=== PATIENT | female | born 1940 | race Caucasian/White ===

== ENCOUNTER → 2019-10-01 10:47 | Outpatient (BNVA) | payer MEDICARE, OTHER, SELFPAY | PROVIDERS: Family Provider Family Medicine; PCP Family Medicine; Visit Provider Family Medicine | DX: I10 Essential (primary) hypertension (principal); E03.9 Hypothyroidism, unspecified | CPT/HCPCS: 80053; 80061; 84443; 85025 ==

== ENCOUNTER → 2019-12-13 09:13 | Outpatient (BNVA) | payer MEDICARE, OTHER, SELFPAY | PROVIDERS: Family Provider Family Medicine; PCP Family Medicine; Visit Provider Family Medicine | DX: E03.9 Hypothyroidism, unspecified (principal); I10 Essential (primary) hypertension; K21.9 Gastro-esophageal reflux disease without esophagitis; G47.00 Insomnia, unspecified; F03.90 Unspecified dementia, unspecified severity, without behavioral disturbance, psychotic disturbance, mood disturbance, and anxiety | CPT/HCPCS: 80053; 84443; 85025 ==

== ENCOUNTER → 2020-03-03 10:21 | Outpatient (BNVA) | payer MEDICARE, OTHER, SELFPAY | PROVIDERS: Family Provider Family Medicine; PCP Family Medicine; Visit Provider Family Medicine | DX: R35.0 Frequency of micturition (principal); E03.9 Hypothyroidism, unspecified; I10 Essential (primary) hypertension; N39.0 Urinary tract infection, site not specified | CPT/HCPCS: 80053; 80061; 81003; 84443; 85025; 87077; 87086; 87186 ==

== ENCOUNTER 2020-05-07 11:54 | Outpatient (CLI) | payer MEDICARE, OTHER, SELFPAY ==
[2020-05-07 12:16] LABS: Basophils % 0.4 %; Eosinophils % 0.2 %; Hematocrit 40.4 % (37.0-47.0); Hemoglobin 12.3 g/dL (11.5-15.3); Lymphocytes # 1.1 10^3/uL (0.8-4.8); Lymphocytes % 22.7 %; Mean Corpuscular HGB Conc 30.4 g/dL (30.0-36.0); Mean Corpuscular Hemoglobin 29.3 pg (28.0-34.0); Mean Corpuscular Volume 96.2 fL (81-99); Mean Platelet Volume 8.2 fL (7.4-10.4); Monocytes # 0.5 10^3/uL (0.2-0.9); Monocytes % 11.4 %; Neutrophils # 2.99 10^3/uL (1.8-7.7); Neutrophils % 64.2 %; Nucleated Red Blood Cells % 0 %; Platelet Count 431 10^3/cmm (130-400); White Blood Count 4.7 10^3/uL (4.0-10.0)
[2020-05-07 12:46] LABS: Alanine Aminotransferase 29 U/L (0-33); Albumin Level 4.5 g/dL (3.5-5.2); Alkaline Phosphatase 127 IU/L (35-105); Blood Urea Nitrogen 10 mg/dL (8-23); Calcium 9.6 mg/dL (8.5-10.5); Carbon Dioxide 31 mmol/L (22-29); Chloride 99 mmol/L (98-107); Globulin 2.5 g/dL (1.3-4.6); Glucose 111 mg/dL (65-115); Osmolality Calculated 283 mOsm/kg (285-295); Sodium 138 mmol/L (136-145); Total Bilirubin 0.3 mg/dL (0.15-1.2)
[2020-05-07 12:52] LABS: Anion Gap 12.7 (5-19); Aspartate Amino Transferase 39 U/L (0-32); Potassium 4.7 mmol/L (3.5-5.1)
== END 2020-05-07 11:55 | disposition home or self-care (01) ==
LOC: LAB 11:57
PROVIDERS: Family Provider Family Medicine; PCP Family Medicine; Visit Provider Internal Medicine Pulmonary Disease
DX: M06.9 Rheumatoid arthritis, unspecified (principal); R06.02 Shortness of breath
CPT/HCPCS: 80053; 85025

== ENCOUNTER → 2020-05-12 14:18 | Outpatient (BNVA) | payer MEDICARE, OTHER, SELFPAY | PROVIDERS: Family Provider Family Medicine; PCP Family Medicine; Visit Provider Internal Medicine | DX: R06.02 Shortness of breath (principal); Z20.828 Contact with and (suspected) exposure to other viral communicable diseases | CPT/HCPCS: 87635 ==

== ENCOUNTER 2020-05-15 08:49 | Outpatient (CLI) | payer MEDICARE, OTHER, SELFPAY ==
--- NOTE | 2020-05-15 09:30 | CT_ITS ---
WS: [id number] CT CHEST WITHOUT INTRAVENOUS CONTRAST, high-resolution imaging. HISTORY: interstitial lung disease TECHNIQUE: Contiguous 5 mm axial imaging performed on the thorax. Coronal and sagittal high resolutio n CT imaging of the chest in supine and prone positioning. Supine inspiration and expiration imaging. All CT scans at [facility] use at least one of these dose optimization techniques: automa alexandra exposure control; mA and/or kV adjustment per patient size (includes targeted exams where dose is matched to clinical indication); or iterative reconstruction. CONTRAST: None DLP: 259.99 mGy.cm COMPARISON: 03/13/2015. This examination is limited due to patient's age and breathing motion artifact. Although the patient was able to obtain prone positioning it was very difficult. Lungs and central airway: Mild pulmonary hyperinflation. There are bilateral upper lower lobe periphe ral and subpleural reticulations. No upper lower lobe predominance of any significance. No pneumonia. No suspicious pulmonary nodule. Benign calcification RIGHT middle lobe. Multilobar areas of mild bro nchiectasis. There is mild bronchiectasis in all lobes are greater at the lung bases and RIGHT middle lobe. With expiration there is loss of the normal pulmonary expansion. No air trapping noted on pron e positioning. No honeycombing. Pleura: Normal. No pleural effusion. Heart and pericardium: Mildly enlarged heart. No pericardial effusion. Upper abdomen: Prior cholecystectomy. Osseous structures: As visualized no destructive lesions. Osteopenia and scoliosis. CT/CT chest wo con [id number] IMPRESSION: 1. Changes of mild usual interstitial pneumonia. Reticulations with mild multi lobar traction bronchiectasis. These findings may be associated with rheumatoi d arthritis. 2. No honeycombing. 3. Mild emphysema.
--- NOTE | 2020-05-15 13:46 | PFTS_ITS ---
Date of Study:05/15/20 Date of Dictation: MECHANICS: Forced vital capacity (FVC) is normal. Forced expiratory volume in one second (FEV1) is normal. FEV1/FVC is normal. FLOW VOLUME LOOP: Normal. LUNG VOLUMES: Total lung capacity (TLC) is normal. Residual volume (RV) is normal. DIFFUSING CAPACITY FOR CARBON MONOXIDE: Mild reduced. INTERPRETATION: The pulmonary function tests are normal. Lung volumes are normal. Gas exchange (DLCO) is mildly reduced. MTDD
== END 2020-05-15 08:50 | disposition home or self-care (01) ==
LOC: CT 08:52
PROVIDERS: PCP Family Medicine; Visit Provider Internal Medicine Pulmonary Disease
DX: M06.9 Rheumatoid arthritis, unspecified (principal); R06.02 Shortness of breath; J43.9 Emphysema, unspecified
CPT/HCPCS: 71250; 94010; 94726; 94729

== ENCOUNTER 2020-06-10 09:27 | Outpatient (CLI) | payer MEDICARE, OTHER, SELFPAY ==
--- NOTE | 2020-06-10 09:30 | USCV_ITS ---
Pearl Roblero Age: 80 Gender: F : 1940 Exam Date: 06/10/2020 09:45 Ordering Phys: Garland Mittal MD Technologist: Sue Esposito Exam Location: [facility] [place] Indication: SOB BP: 117 / 70 HR: 77 Rhythm: Sinus Technical Quality: Adequate MEASUREMENTS (Male / Female) Normal Values 2D ECHO LV Diastolic Diameter PLAX 4.0 cm 4.2 - 5.9 / 3.9 - 5.3 cm LV Systolic Diameter PLAX 2.1 cm LV Chamber Size 3.4 cm IVS Diastolic Thickness 1.2 cm 0.6 - 1.0 / 0.6 - 0.9 cm IVS Systolic Thickness 1.7 cm LVPW Diastolic Thickness 1.1 cm 0.6 - 1.0 / 0.6 - 0.9 cm LVPW Systolic Thickness 1.5 cm RV Chamber Size 2.9 cm LVOT Diameter 2.0 cm LV Ejection Fraction 2D Teich 78.2 % LV Ejection Fraction MOD 2C 55.5 % LV Ejection Fraction 2C AL 56.8 % LA Diameter 4.0 cm LA Width 2.0 cm LA Height 4.1 cm RA Width 2.7 cm RA Height 4.0 cm Aorta at Sinotubular Diameter 3.2 cm M-MODE LV Diastolic Diameter MM 4.3 cm 4.2 - 5.9 / 3.9 - 5.3 cm LV Systolic Diameter MM 2.8 cm LV Ejection Fraction MM Teich 64.5 % IVS Diastolic Thickness MM 0.8 cm 0.6 - 1.0 / 0.6 - 0.9 cm IVS Systolic Thickness MM 1.2 cm LVPW Diastolic Thickness MM 1.0 cm 0.6 - 1.0 / 0.6 - 0.9 cm LVPW Systolic Thickness MM 1.6 cm RV Diastolic Diameter MM 1.4 cm Aortic Annulus Diameter 2.9 cm LA Ao Ratio MM 1.4 MV E Point Septal Separation 0.6 cm DOPPLER AV Peak Velocity 196.0 cm/s LVOT Peak Velocity 94.0 cm/s AV Area Cont Eq vti 1.7 cm squared AV Area Cont Eq pk 1.6 cm squared MV Area PHT 3.5 cm squared Mitral E to A Ratio 0.7 MV E' Velocity 6.0 cm/s Mitral E to MV E' Ratio 8.8 Mitral E to LV E' Lateral Ratio 9.7 Mitral E to LV E' Septal Ratio 8.2 TR Peak Velocity 238.9 cm/s TR Peak Gradient 22.8 mmHg TR Mean Velocity 186.0 cm/s TR Mean Gradient 15.0 mmHg TR Velocity Time Integral 69.8 cm TV Peak E Velocity 50.0 cm/s Right Atrial Pressure 3.0 mmHg Pulmonary Artery Systolic Pressu 25.8 mmHg PV Peak Velocity 65.0 cm/s RV Acceleration Time 0.1 s RV Ejection Time 0.3 s RV AcT/ET 0.4 FINDINGS Left Ventricle Normal left ventricular size and systolic function, EF 57 %. Mild left ventricular hypertrophy. No regional wall motion abnormalities. Grade I/IV diastolic dysfunction (abnormal relaxation filling pattern), normal to mildly elevated filling pressures. Right Ventricle The right ventricle is normal in size and function. Right Atrium The right atrium is normal in size. Left Atrium Normal left atrial size. Mitral Valve Thickened mitral valve. Aortic Valve Thickened aortic valve. Trace to mild aortic valve regurgitation. Tricuspid Valve Mild tricuspid valve regurgitation. Similar pulmonary artery peak systolic pressure was 26 mmHg Pulmonic Valve Pulmonic valve not well visualized. Pericardium No pericardial or pleural effusion. Aorta Normal ascending aorta dimension. CONCLUSIONS Normal left ventricular size and systolic function, EF 57 %. Mild left ventricular hypertrophy. No regional wall motion abnormalities. Grade I/IV diastolic dysfunction (abnormal relaxation filling pattern), normal to mildly elevated filling pressures. Features of aortic valve sclerosis with a peak velocity of 1.96 m/s Trace to mild aortic valve regurgitation. Thickened mitral valve. Mild tricuspid valve regurgitation. Similar pulmonary artery peak systolic pressure was 26 mmHg. There is no pericardial effusion. There are no intracardiac masses. Compared to the study from 03/18/2017, there may not be a significant Dr Susan Grullon MD FACC (Electronically Signed) Final Date: 10 June 2020 18:20 S
== END 2020-06-10 09:28 | disposition home or self-care (01) ==
LOC: RAD 09:30
PROVIDERS: PCP Family Medicine; Visit Provider Internal Medicine Pulmonary Disease
DX: I27.20 Pulmonary hypertension, unspecified (principal); R06.02 Shortness of breath; I08.3 Combined rheumatic disorders of mitral, aortic and tricuspid valves
CPT/HCPCS: 93306

== ENCOUNTER → 2020-06-16 15:55 | Outpatient (BNVA) | payer MEDICARE, OTHER, SELFPAY | PROVIDERS: PCP Family Medicine; Referring Provider Internal Medicine Pulmonary Disease; Visit Provider Internal Medicine | DX: E03.9 Hypothyroidism, unspecified (principal); E05.90 Thyrotoxicosis, unspecified without thyrotoxic crisis or storm; I10 Essential (primary) hypertension; I48.91 Unspecified atrial fibrillation; M81.0 Age-related osteoporosis without current pathological fracture; R00.0 Tachycardia, unspecified; R79.89 Other specified abnormal findings of blood chemistry; T38.1X5A Adverse effect of thyroid hormones and substitutes, initial encounter | CPT/HCPCS: 36415; 84439; 84443; 99204 ==

== ENCOUNTER 2020-06-16 16:48 | Outpatient (CLI) | payer MEDICARE, OTHER, SELFPAY ==
[2020-06-16 17:52] LABS: Free T4 Free Thyroxine 1.77 ng/dL (0.82-1.77); Thyroid Stimulating Hormone 0.05 uIU/mL (0.27-4.20)
== END 2020-06-16 16:49 | disposition home or self-care (01) ==
LOC: LAB 16:52
PROVIDERS: PCP Family Medicine; Visit Provider Internal Medicine
DX: E03.9 Hypothyroidism, unspecified (principal); R79.89 Other specified abnormal findings of blood chemistry
CPT/HCPCS: 36415; 84439; 84443

== ENCOUNTER → 2020-08-15 10:10 | Outpatient (BNVA) | payer MEDICARE, OTHER, SELFPAY | PROVIDERS: PCP Family Medicine; Visit Provider Internal Medicine | DX: E05.90 Thyrotoxicosis, unspecified without thyrotoxic crisis or storm (principal); T38.1X5A Adverse effect of thyroid hormones and substitutes, initial encounter; I10 Essential (primary) hypertension; M81.0 Age-related osteoporosis without current pathological fracture; R00.0 Tachycardia, unspecified | CPT/HCPCS: 99214 ==

== ENCOUNTER → 2020-08-18 09:36 | Outpatient (BNVA) | payer MEDICARE, OTHER, SELFPAY | PROVIDERS: PCP Family Medicine; Visit Provider Internal Medicine | DX: E03.9 Hypothyroidism, unspecified (principal); E05.90 Thyrotoxicosis, unspecified without thyrotoxic crisis or storm; T38.1X5A Adverse effect of thyroid hormones and substitutes, initial encounter | CPT/HCPCS: 84439; 84443 ==

== ENCOUNTER → 2020-10-14 09:31 | Outpatient (BNVA) | payer MEDICARE, OTHER, SELFPAY | PROVIDERS: PCP Nurse Practitioner Family; Visit Provider Internal Medicine | DX: E03.9 Hypothyroidism, unspecified (principal); E05.90 Thyrotoxicosis, unspecified without thyrotoxic crisis or storm; T38.1X5A Adverse effect of thyroid hormones and substitutes, initial encounter; G31.84 Mild cognitive impairment of uncertain or unknown etiology; M05.10 Rheumatoid lung disease with rheumatoid arthritis of unspecified site; M81.0 Age-related osteoporosis without current pathological fracture; R00.0 Tachycardia, unspecified | CPT/HCPCS: 36415; 84439; 84443; 99215 ==

== ENCOUNTER 2020-10-14 10:46 | Outpatient (CLI) | payer MEDICARE, OTHER, SELFPAY ==
[2020-10-14 11:39] LABS: Thyroid Stimulating Hormone 0.07 uIU/mL (0.27-4.20)
[2020-10-14 13:26] LABS: Free T4 Free Thyroxine 1.59 ng/dL (0.82-1.77)
== END 2020-10-14 10:47 | disposition home or self-care (01) ==
PROVIDERS: PCP Nurse Practitioner Family; Visit Provider Internal Medicine
DX: E03.9 Hypothyroidism, unspecified (principal)
CPT/HCPCS: 36415; 84439; 84443

== ENCOUNTER → 2020-11-27 10:31 | Outpatient (BNVA) | payer MEDICARE, OTHER, SELFPAY | PROVIDERS: PCP Nurse Practitioner Family; Visit Provider Internal Medicine Pulmonary Disease | DX: R06.02 Shortness of breath (principal) | CPT/HCPCS: 87635 ==

== ENCOUNTER 2020-12-04 12:58 | Outpatient (CLI) | payer MEDICARE, OTHER, SELFPAY ==
--- NOTE | 2020-12-04 13:37 | PFTS_ITS ---
Date of Study:12/04/20 Date of Dictation: MECHANICS: Forced vital capacity (FVC) is normal. Forced expiratory volume in one second (FEV1) is normal. FEV1/FVC is normal. FLOW VOLUME LOOP: Normal. LUNG VOLUMES: Total lung capacity (TLC) is normal. Residual volume (RV) is normal. DIFFUSING CAPACITY FOR CARBON MONOXIDE: Normal. INTERPRETATION: The pulmonary function tests are normal. MTDD
== END 2020-12-04 12:59 | disposition home or self-care (01) ==
LOC: RT 13:00
PROVIDERS: PCP Nurse Practitioner Family; Visit Provider Internal Medicine Pulmonary Disease
DX: R06.02 Shortness of breath (principal)
CPT/HCPCS: 94010; 94618; 94726; 94729

== ENCOUNTER 2021-07-17 10:25 | Inpatient (IN) | payer MEDICARE, OTHER, SELFPAY ==
[2021-07-17] VITALS (7 sets, daily range): BP systolic 90–130; BP diastolic 60–77; PULSE 86–110; RESP 14–20; TEMP 36.5–36.9; O2SAT 95–97; BMI 20.3; BMI 22.6
--- NOTE | 2021-07-17 10:35 | ECG_ITS ---
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 Measurements Intervals [place] Rate: 95 P: 75 [place]: 156 QRS: -41 QRSD: 145 T: 85 QT: 370 QTc: 467 Interpretive Statements SINUS RHYTHM LEFT AXIS DEVIATION [QRS AXIS < -30] RIGHT BUNDLE BRANCH BLOCK [120+ ms QRS DURATION, UPRIGHT V1, 40+ ms S IN I/aVL/V4/V5/V6] VOLTAGE CRITERIA FOR LVH [MEETS CRITERIA IN ONE OF: R(aVL), S(V1), R(V5), R(V5/V6)+S(V1)] MODERATE T-WAVE ABNORMALITY, CONSIDER LATERAL ISCHEMIA [-0.1+ mV T-WAVE IN I/aVL/V5/V6] Compared to ECG 07/26/2017 13:29:50 Left-axis deviation now present T-wave abnormality now present Possible ischemia now present First degree AV block no longer present Electronically Signed On 07-17-2021 22:39:34 CDT by Chris Chicas M.D. [email or web address]
--- NOTE | 2021-07-17 10:35 | XR_ITS ---
WS: [id number] Portable AP upright chest, 07/17/2021 Clinical Data: dyspnea; +covid Comparison: PA and lateral chest, 09/07/2018. Findings: No nodules, masses or effusions are seen. The heart is normal. The pulmonary vascularity is not increased. No pneumonia or pneumothorax is seen. Minimal interstitial changes seen throughout th e lungs. The aortic arch and descending thoracic aorta show tortuosity. There is a levoscoliosis of t he thoracic spine. XR/XR chest 1V portable [id number] Impression: 1. Minimal interstitial change throughout both lungs which may represent chroni c interstitial pneumonia. 2. Atherosclerosis.
--- NOTE | 2021-07-17 11:48 | W.ED.COVID ---
HPI - COVID General: Chief Complaint: COVID symptoms Stated Complaint: COVID, WEAKNESS Time Seen by Provider: 07/17/21 10:26 Source: patient and EMS Mode of arrival: EMS Limitations: no limitations Triage information: Has fever, cough or shortness of breath. Exposure to COVID + person last 14 days History of Present Illness: HPI Narrative: Patient with increased shortness of breath generalized weakness and increased falls over the past 2 days. Patient tested positive for Covid yesterday. was diagnosed with Covid approximately 8 days ago. Patient states she has been feeling ill for approximately 3 days. EMS states that they responded to the house yesterday due to a couple falls due to generalized weakness. Patient normally gets around with a walker. Patient reportedly was very weak and fell couple times due to generalized weakness. Patient refused transport yesterday. Patient reportedly had oxygen saturation 90% on room air yesterday. EMS was called again today due to patient's increased generalized weakness and increased shortness of breath. EMS states their initial oxygen saturation on room air was 85%. Patient was placed on 2 L by nasal cannula and oxygen saturation increased to 96%. Patient states she feels better on the oxygen. She denies any fever. She claims she has had increased cough over the past couple days. Reportedly she has been ambulatory with her walker this morning. COVID 19 common symptoms: positive non-productive cough, dyspnea and fatigue; negative fever(s), chills, headache(s), throat pain, nausea or vomiting COVID 19 other sytmptoms: negative chest pain COVID Results: SARS-CoV-2 RNA (RT-PCR) Not detected (NOT DETECTED) 05/12/20 14:52 05/12/20 Nasal/Oral Coronavirus 2019 PCR Not detected 11/27/20 10:31 11/27/20 Review of Systems Const: Reports: fatigue and malaise; Denies: fever(s) or chills Eyes: Denies: change in vision ENMT: Denies: throat pain Card: Denies: chest pain or palpitations Resp: Reports: dyspnea and non-productive cough; Denies: wheezing GI: Denies: abdominal pain, nausea or vomiting : Denies: flank pain Musc: Denies: neck pain or back pain Skin/Breast: Denies: rash or pruritus Neuro: Denies: headache(s) or numbness in extremities Psych: Denies: anxiety Aiden/Lymph: Denies: enlarged lymph nodes PFSH ED PFSH: Medical History Anxiety and depression Atrial fibrillation and flutter Cardiomyopathy History of OCD (obsessive compulsive disorder) Hypertension Hypothyroidism TARUN on CPAP Osteoarthritis Osteoporosis Rheumatoid arthritis Rheumatoid lung disease with rheumatoid arthritis Surgical History History of arthroplasty of right shoulder History of bladder repair surgery History of cholecystectomy History of foot surgery History of sinus surgery History of spinal fusion Family History Mother Parkinsons disease Social History Smoking and tobacco status: former smoker Quit status (tobacco): has quit using tobacco Year quit tobacco: 1960 Second hand smoke exposure: No Smoking risk assessment/counseling performed?: Yes Alcohol intake: never Adopted: No Lives independently: Yes Household members: spouse Housing: House Marital status: Number of children: 2 service: No Current occupational status: retired Current occupational exposures/hazards: No Pets and animals: Yes Pets & animals: dog(s) History of recent travel: No Current gender identity: Female Laura/[facility]: [employer] Special laura needs: No Physical Exam Const: COMMON NORMALS: no acute distress, patient oriented x3, no limitations and well nourished EXAM LIMITATIONS: altered mental status GENERAL APPEARANCE: cooperative OTHER: Moderate malaise. Oxygen saturation 96% on 2 L by nasal cannula. HENMT: COMMON NORMALS: normocephalic and atraumatic HEAD & SCALP: normocephalic and atraumatic FACE & SINUS: normal facial exam Eye: COMMON NORMALS: EOMs intact bilaterally Neck/C-Spine: COMMON NORMALS: full ROM, no lymphadenopathy, supple and no meningeal signs GENERAL: Yes normal visual inspection Lymph: LYMPHATIC: no lymphadenopathy noted Chest: COMMONS NORMALS: normal inspection of the chest and normal palpation of entire chest wall CHEST: No Ecchymosis present and No rash Resp: COMMON NORMALS: No retractions EFFORT & INSPECTION: Yes tachypneic (Mild tachypnea) and No respiratory distress AUSCULTATION: rales (Moderate Rales bilaterally) bilateral Cardio: COMMON NORMALS: regular rate, regular rhythm and Peripheral pulses 2+ throughout JUGULAR VENOUS DISTENTION: no JVD RATE: regular rate RHYTHM: regular rhythm PERIPHERAL PULSES: Peripheral pulses 2+ throughout GI: COMMON NORMALS: Normal to inspection, nondistended, normoactive bowel sounds present and non-tender : COMMON NORMALS: Yes no CVA tenderness BLADDER/KIDNEY EXAM: Yes no CVA tenderness Back/Pelvis: COMMON NORMALS: no CVA tenderness Extremity: COMMON NORMALS: capillary refill normal NARRATIVE EXTREMITY EXAM: Right third finger with mild swelling and mild ecchymosis versus slight redness. No increased warmth. No fluctuance. Limited range of motion due to arthritic changes. Neuro: COMMON NORMALS: patient oriented x3, CN's II-XII intact bilaterally, no focal motor deficits and no sensory deficits noted MENINGEAL SIGNS: Yes no meningeal signs Psych: COMMON NORMALS: mental status grossly normal and Normal thought process present THOUGHT PROCESS: Normal thought process present Skin: COMMON NORMALS: no rashes or lesions noted and no wounds GENERAL SKIN EXAM: no rashes or lesions noted Course Vital Signs: Vital signs: Vital Signs Temperature 98.5 F 07/17/21 10:29 Pulse Rate 100 07/17/21 14:57 Respiratory Rate 14 07/17/21 11:32 Blood Pressure 109/66 07/17/21 14:57 Pulse Oximetry 95 07/17/21 14:57 MDM - COVID MDM Narrative: Medical decision making narrative: See nursing assessment. Patient reports that her right third finger has been swollen for 4 to 6 weeks. Her primary care physician is following this. Patient denies any increase in pain to her right third finger. She states it is mildly painful but has not changed in the past couple weeks. No known injury to the right third finger. Fingers not warm to the touch. I do not believe it is infected. Patient reportedly had a positive Covid test in the past 2 days at [facility]. We will call the clinic to confirm this. [facility] was contacted and they did confirm that she did have a positive Covid test this week. Differential Diagnosis: Differential diagnosis: Likely COVID 19, bacterial infection and other (Pulmonary embolus) Lab Data: Attestation: I reviewed the patient's lab results. Labs: Lab Results 07/17/21 07/17/21 07/17/21 11:42 11:42 11:42 WBC 2.4 10^3/uL L 10^ 3/uL (4.0-10.0) RBC 4.13 10^6/uL 10^6 /uL (4.1-5.3) Hgb 12.7 g/dL g/dL (11.5-15.3) Hct 40.5 % % (37.0-47.0) MCV 98.1 fl fl (81-99) MCH 30.8 pg pg (28.0-34.0) MCHC 31.4 g/dL g/dL (30.0-36.0) RDW 16.3 % H % (12.1-15.1) Plt Count 219 10^3/cmm 10^3 /cmm (130-400) MPV 8.8 fL fL (7.4-10.4) Neut % (Auto) 53.3 % % Lymph % (Auto) 32.2 % % [place] % (Auto) 5.0 % % Eos % (Auto) 0.4 % % Baso % (Auto) 0.8 % % Neut # (Auto) 1.29 10^3/uL L 10 ^3/uL (1.8-7.7) Lymph # (Auto) 0.8 10^3/uL 10^3/ uL (0.8-4.8) [place] # (Auto) 0.1 10^3/uL L 10^ 3/uL (0.2-0.9) Eos # (Auto) 0.0 10^3/uL 10^3/ uL (0.0-0.8) Baso # (Auto) 0.0 10^3/uL 10^3/ uL (0.0-0.1) Nucleated RBC % (a uto) 0 % % Nucleated RBCs # 0.0 /100WBC /100W BC APTT Cancelled D-Dimer Cancelled Sodium Cancelled Potassium Cancelled Chloride Cancelled Carbon Dioxide Cancelled Anion Gap Cancelled BUN Cancelled Creatinine Cancelled GFR Calculation Cancelled Glucose Cancelled Calculated Osmolal ity Cancelled Lactate Calcium Cancelled Total Bilirubin Cancelled AST Cancelled ALT Cancelled Alkaline Phosphata se Cancelled Troponin T Gen 5 n g/L NT-Pro-B Natriuret Pep Cancelled Total Protein Cancelled Albumin Cancelled Globulin Cancelled Amorphous Sediment 07/17/21 07/17/21 07/17/21 11:42 11:42 12:49 WBC RBC Hgb Hct MCV MCH MCHC RDW Plt Count MPV Neut % (Auto) Lymph % (Auto) [place] % (Auto) Eos % (Auto) Baso % (Auto) Neut # (Auto) Lymph # (Auto) [place] # (Auto) Eos # (Auto) Baso # (Auto) Nucleated RBC % (a uto) Nucleated RBCs # APTT D-Dimer Sodium 136 mmol/L mmol/L (136-145) Potassium 4.1 mmol/L mmol/L (3.5-5.1) Chloride 98 mmol/L mmol/L (98-107) Carbon Dioxide 27 mmol/L mmol/L (22-29) Anion Gap 15.1 (5-19) BUN 22 mg/dL mg/dL (8-23) Creatinine 1.0 mg/dL H mg/dL (0.5-0.9) GFR Calculation Not Reportable Glucose 163 mg/dL H mg/dL (65-115) Calculated Osmolal ity 289 mOsm/kg mOsm/ kg (285-295) Lactate 1.6 mmol/L mmol/L (0.5-2.2) Calcium 8.7 mg/dL mg/dL (8.5-10.5) Total Bilirubin 0.3 mg/dL mg/dL (0.15-1.2) AST 36 U/L H U/L (0-32) ALT 32 U/L U/L (0-33) Alkaline Phosphata se 100 IU/L IU/L (35-105) Troponin T Gen 5 n g/L 83 ng/L H ng/L (0-10) NT-Pro-B Natriuret Pep 404 pg/mL pg/mL (0-450) Total Protein 5.4 g/dL L g/dL (6.6-8.7) Albumin 3.1 g/dL L g/dL (3.5-5.2) Globulin 2.3 g/dL g/dL (1.3-4.6) Amorphous Sediment 07/17/21 07/17/21 07/17/21 12:49 13:47 14:36 WBC RBC Hgb Hct MCV MCH MCHC RDW Plt Count MPV Neut % (Auto) Lymph % (Auto) [place] % (Auto) Eos % (Auto) Baso % (Auto) Neut # (Auto) Lymph # (Auto) [place] # (Auto) Eos # (Auto) Baso # (Auto) Nucleated RBC % (a uto) Nucleated RBCs # APTT 31.2 SECONDS SECO NDS (23.9-36.7) D-Dimer 2.61 ug/mIFEU H u g/mIFEU (0-0.59) Sodium Potassium Chloride Carbon Dioxide Anion Gap BUN Creatinine GFR Calculation Glucose Calculated Osmolal ity Lactate Calcium Total Bilirubin AST ALT Alkaline Phosphata se Troponin T Gen 5 n g/L 72 ng/L H ng/L (0-10) NT-Pro-B Natriuret Pep Total Protein Albumin Globulin Amorphous Sediment Not Reportable Imaging Data: CXR: Attestation: I personally reviewed and interpreted this imaging study as follows: My impression: Early left lower lobe infiltrate. Minimal pneumonitis bilaterally. Radiologist's impression: WS: [id number] Portable AP upright chest, 07/17/2021 Clinical Data: dyspnea; +covid Comparison: PA and lateral chest, 09/07/2018. Findings: No nodules, masses or effusions are seen. The heart is normal. The pulmonary vascularity is not increased. No pneumonia or pneumothorax is seen. Minimal interstitial changes seen throughout the lungs. The aortic arch and descending thoracic aorta show tortuosity. There is a levoscoliosis of the thoracic spine. XR/XR chest 1V portable [id number] Impression: 1. Minimal interstitial change throughout both lungs which may represent chronic interstitial pneumonia. 2. Atherosclerosis. Dictated By:Silvia Cain MDSigned By:Silvia Cain MDSigned Date/Time:07/17/21 1157 Xray Ortho: Radiologist's impression: WS: [email or web address] 2 views of the right third finger, 07/17/2021 Clinical Data: r3 finger pain/swelling for one month Comparison: None. Findings: There is marked deformity of the right third finger PIP joint with ventral dislocation of the middle phalanx and a pseudarthrosis with a large dorsal spur. Deforming dislocations of the adjacent second and fourth fingers are also present. There is bony overgrowth of the distal portion of the third finger middle phalanx as it articulates with the distal phalanx. No fractures are seen. There is soft tissue swelling about the PIP joint. XR/XR finger RT min 2V [id number] Impression: Marked deformity of the right third finger with no recent fractures. Dictated By:Silvia Cain MDSigned By:Silvia Cain MDSigned Date/Time:07/17/21 1208 EKG Data: EKG 1: Attestation: I personally reviewed and interpreted this EKG as follows: EKG interpretation date: 07/17/21 EKG interpretation time: 13:05 Prior EKG tracings: not available for review Ischemic changes: non-specific ST-T wave changes Interpretation: Normal sinus rhythm with heart rate 95. Left axis. Right bundle branch block, nonspecific ST-T changes. Neck from tremor. Normal NC interval. Normal QT interval. COVID Results: SARS-CoV-2 RNA (RT-PCR) Not detected (NOT DETECTED) 05/12/20 14:52 05/12/20 Nasal/Oral Coronavirus 2019 PCR Not detected 11/27/20 10:31 11/27/20 Discharge Plan Discharge Clinical Impression: Pneumonia due to COVID-19 virus, Shortness of breath at rest, Osteoarthritis of right middle finger Condition: Stable Prescriptions: No Action duloxetine 60 mg capsule, delayed rel sprinkle 60 mg PO DAILY Qty: 90 RF: 1 omeprazole 10 mg capsule,delayed release(DR/EC) 10 mg PO BID Qty: 120 RF: 3 duloxetine 30 mg capsule, delayed rel sprinkle 30 mg PO DAILY PRNRF: 0 gabapentin 400 mg capsule 200 mg PO QID RF: 0 prednisone 10 mg tablet 10 mg PO DAILY RF: 0 furosemide 40 mg tablet See Rx Instructions .ROUTE .COMPLEX Qty: 90 RF: 0 temazepam 30 mg capsule 30 mg PO .at hs Qty: 30 RF: 2 potassium chloride 10 mEq tablet extended release See Rx Instructions .ROUTE .COMPLEX Qty: 180 RF: 6 isosorbide mononitrate 30 mg tablet extended release 24 hr 30 mg PO DAILY Qty: 90 RF: 3 Referrals: Anahy Ham APN [Primary Care Provider] - Coding Level of Care Code ED Canvas Shrinker for Chg Fwd Exam Comprehensive
--- NOTE | 2021-07-17 11:50 | XR_ITS ---
WS: [email or web address] 2 views of the right third finger, 07/17/2021 Clinical Data: r3 finger pain/swelling for one month Comparison: None. Findings: There is marked deformity of the right third finger PIP joint with ventral dislocation of the middle phalanx and a pseudarthrosis with a large dorsal spur. Deforming dislocations of the adjacent second and fourth fingers are also present. There is bony overgrowth of the distal portion of the third fin himanshu middle phalanx as it articulates with the distal phalanx. No fractures are seen. There is soft tissue swelling about the PIP joint. XR/XR finger RT min 2V [id number] Impression: Marked deformity of the right third finger with no recent fractures.
[2021-07-17 11:53] LABS: Basophils % 0.8 %; Eosinophils % 0.4 %; Hematocrit 40.5 % (37.0-47.0); Hemoglobin 12.7 g/dL (11.5-15.3); Lymphocytes # 0.8 10^3/uL (0.8-4.8); Lymphocytes % 32.2 %; Mean Corpuscular HGB Conc 31.4 g/dL (30.0-36.0); Mean Corpuscular Hemoglobin 30.8 pg (28.0-34.0); Mean Corpuscular Volume 98.1 fl (81-99); Mean Platelet Volume 8.8 fL (7.4-10.4); Monocytes # 0.1 10^3/uL (0.2-0.9); Neutrophils # 1.29 10^3/uL (1.8-7.7); Neutrophils % 53.3 %; Nucleated Red Blood Cells % 0 %; Platelet Count 219 10^3/cmm (130-400); Red Blood Count 4.13 10^6/uL (4.1-5.3); Red Cell Distribution Width 16.3 % (12.1-15.1); White Blood Count 2.4 10^3/uL (4.0-10.0)
[2021-07-17 12:17] LABS: Troponin T (5th) Once 83 ng/L (0-10)
[2021-07-17 12:18] LABS: Lactate (Lactic Acid level) 1.6 mmol/L (0.5-2.2)
[2021-07-17 12:31] LABS: Slide Review Slide Review Perform
[2021-07-17] MEDS: aspirin 81 mg Chew Tablet 324 MG PO (13:21)
[2021-07-17] MEDS: azithromycin 500 MG in sodium chloride 0.9% 250 ML 250 MG IV (13:22)
[2021-07-17] MEDS: cefTRIAXone 1,000 MG in sodium chloride 0.9% (plus) 50 ML 100 MG IV (13:23)
[2021-07-17 13:46] LABS: Partial Thromboplastin Time 31.2 SECONDS (23.9-36.7)
[2021-07-17 13:47] LABS: Alanine Aminotransferase 32 U/L (0-33); Albumin Level 3.1 g/dL (3.5-5.2); Alkaline Phosphatase 100 IU/L (35-105); Anion Gap 15.1 (5-19); Aspartate Amino Transferase 36 U/L (0-32); Blood Urea Nitrogen 22 mg/dL (8-23); Calcium 8.7 mg/dL (8.5-10.5); Carbon Dioxide 27 mmol/L (22-29); Chloride 98 mmol/L (98-107); Globulin 2.3 g/dL (1.3-4.6); Glucose 163 mg/dL (65-115); NT Pro B Type Natriuretic Pept 404 pg/mL (0-450); Osmolality Calculated 289 mOsm/kg (285-295); Potassium 4.1 mmol/L (3.5-5.1); Sodium 136 mmol/L (136-145); Total Bilirubin 0.3 mg/dL (0.15-1.2); Total Protein 5.4 g/dL (6.6-8.7)
[2021-07-17 13:48] LABS: D Dimer 2.61 ug/mIFEU (0-0.59)
[2021-07-17 14:25] LABS: Troponin T (5th) Once 72 ng/L (0-10)
--- NOTE | 2021-07-17 15:10 | CTR_ITS ---
PROCEDURE INFORMATION: Exam: CTA Chest With Contrast Exam date and time: 07/17/2021 3:10 PM Age: 81 years old Clinical indication: Shortness of breath; Patient HX: Covid+ w SOB and elev d-dimer; Additional info: Shortness of breath; + covid; Elevated ddimer, ddimer 2.6; Normal bun/creat; Rule out pulmonary embolus TECHNIQUE: Imaging protocol: Computed tomographic angiography of the chest with contrast. 3D rendering (Not supervised by radiologist): MIP and/or 3D reconstructed images were created by the technologist. Radiation optimization: All CT scans at this facility use at least one of these dose optimization techniques: automated exposure control; mA and/or kV adjustment per patient size (includes targeted exams where dose is matched to clinical indication); or iterative reconstruction. Contrast material: VISI 320; Contrast volume: 53 ml; Contrast route: INTRAVENOUS (IV); COMPARISON: CT chest wo con [id number] 05/15/2020 9:11 AM RADIATION DOSE METRICS: Total DLP (mGy-cm): 557.25 FINDINGS: Pulmonary arteries: Pulmonary arteries are adequately opacified for evaluation through the segmental level. Subsegmental vessels are obscured. There is no filling defect to suggest embolism. Aorta: There is mild aortic atherosclerotic disease. Lungs: There is mild patchy subpleural opacity in both lower lobes and in the posterior left upper lobe, new since 05/15/2020. There is a questionable nodule measuring 16 mm in the posterior left upper lobe on axial series 3, image 28. There is decreased AP diameter of the distal trachea and central bronchi consistent with tracheobronchomalacia. Known fibrotic changes are obscured by motion artifact. Pleural spaces: Unremarkable. No pneumothorax. No pleural effusion. Heart: There is mild cardiac enlargement. There is no pericardial effusion. Lymph nodes: There is no mediastinal or hilar lymphadenopathy. Diaphragm: There is a small sliding-type hiatal hernia. Intraperitoneal space: Visible structures in the upper abdomen are unremarkable. Bones/joints: Bones are unremarkable. Soft tissues: The extrathoracic soft tissues are unremarkable. CT/CT angio chest [id number] IMPRESSION: 1. Subsegmental atelectasis versus infection in the lower lobes. 2. No pulmonary embolism. 3. 16 mm left upper lobe opacity. Possible nodule. For both low risk and high risk patients, consider CT Chest at 3 months, PET/CT, or biopsy. (Reference: Justin) 4. Tracheobronchomalacia. REFERENCES: Justin Lester, et al. Guidelines for Management of Incidental Pulmonary Nodules Detected on CT Images: From the Fleischner Society 2017. Radiology. 2017;284(1):228-243. Radiation Dose CTDIVOL = (mGy): DLP = 557.25 (mGy-cm)
--- NOTE | 2021-07-17 15:11 | P.HP_ITS ---
Providers/Chief Complaint Primary Care Provider: Anahy Ham APN Chief Complaint: COVID, WEAKNESS History of Present Illness Pearl Roblero is a 81 year old female Mild interstitial fibrosis involving distal airways, granulomatous disease, moderate emphysema, preserved ejection fraction, pulmonary arterial hypertension PA pressure 35, EF 57%, grade 1 diastolic dysfunction, history of rheumatoid arthritis, takes prednisone for interstitial lung disease presented today with worsening shortness of breath. Patient is stating that her was sick with COVID-19 about 9 to 10 days ago, they are not vaccinated for COVID-19, she started developing shortness of breath and generalized malaise around Tuesday, tested positive for COVID-19 yesterday at the clinic and was reluctant to come to the hospital for further evaluation. Her called EMS yesterday at that time she was saturating in low 90s refused to come to the hospital. Today called EMS again for her worsening shortness of breath and lethargy. She is also experiencing diarrhea. Patient is denying chest pain, fever and vomiting. Review of Systems Const: Reports: chills, body aches, change in appetite and fatigue Eyes: Denies: change in vision ENMT: Denies: throat pain Card: Reports: orthopnea; Denies: chest pain Resp: Reports: dyspnea and non-productive cough GI: Reports: diarrhea : Denies: flank pain Musc: Reports: muscle cramps Skin/Breast: Denies: rash Neuro: Denies: headache(s) Psych: Denies: anxiety Endo: Denies: polyuria Aiden/Lymph: Denies: easy bruising All/Imm: Denies: urticaria Medications/Allergies Home Medications Medication Instructions Recorded Confirmed Last Taken Type duloxetine 60 mg capsule,delayed 60 mg PO DAILY #90 cap 04/29/20 07/17/21 07/16/21 Rx release sprinkle omeprazole 10 mg capsule,delayed 10 mg PO BID #120 cap 04/29/20 07/17/21 07/16/21 Rx release duloxetine 30 mg capsule,delayed 30 mg PO DAILY 06/09/20 07/17/21 07/16/21 History release sprinkle prednisone 10 mg tablet 10 mg PO DAILY 06/16/20 07/17/21 07/16/21 History isosorbide mononitrate 30 mg 30 mg PO DAILY #90 tab 0907/17/21 07/16/21 Rx tablet,extended release 24 hr donepezil 10 mg PO DAILY 07/17/21 07/17/21 07/16/21 History furosemide 40 mg PO DAILY 07/17/21 07/17/21 07/16/21 History gabapentin 200 mg PO QID 07/17/21 07/17/21 07/16/21 History levothyroxine 137 mcg PO DAILY 07/17/21 07/17/21 07/16/21 History memantine 10 mg PO BID 07/17/21 07/17/21 07/17/21 History potassium chloride 20 meq PO TID 07/17/21 07/17/21 07/16/21 History temazepam 30 mg PO BEDTIME 07/17/21 07/17/21 07/16/21 History trazodone 100 mg PO BEDTIME 07/17/21 07/17/21 07/16/21 History Allergies Allergy/AdvReac Type Severity Reaction Status Date / Time methotrexate Allergy Severe Cough Verified 11/24/20 10:20 PFSH Acute PFSH: Medical History Anxiety and depression Atrial fibrillation and flutter Cardiomyopathy History of OCD (obsessive compulsive disorder) Hypertension Hypothyroidism TARUN on CPAP Osteoarthritis Osteoporosis Rheumatoid arthritis Rheumatoid lung disease with rheumatoid arthritis Surgical History History of arthroplasty of right shoulder History of bladder repair surgery History of cholecystectomy History of foot surgery History of sinus surgery History of spinal fusion Family History Mother Parkinsons disease Social History Smoking and tobacco status: former smoker Quit status (tobacco): has quit using tobacco Year quit tobacco: 1960 Second hand smoke exposure: No Smoking risk assessment/counseling performed?: Yes Alcohol intake: never Adopted: No Lives independently: Yes Household members: spouse Housing: House Marital status: Number of children: 2 service: No Current occupational status: retired Current occupational exposures/hazards: No Pets and animals: Yes Pets & animals: dog(s) History of recent travel: No Current gender identity: Female Laura/Mu-Ism: [employer] Special laura needs: No Vitals/I&O/Wt Last Vital Signs Temp 98.5 F 07/17/21 10:29 Pulse 100 07/17/21 14:57 Resp 14 07/17/21 11:32 BP 109/66 07/17/21 14:57 Pulse Ox 95 07/17/21 14:57 07/17/21 07/17/21 07/17/21 06:59 14:59 22:59 Intake Total 50 / 50 Balance 50 / 50 Weight last 48 hrs Weight 58.967 kg Physical Exam Narrative: EXAM NARRATIVE: Elderly female, appears stated age Looks dehydrated A. fib RVR heart rate 110 Currently saturating well on 2 L nasal cannula No active chest pain Chest congestion positive, rhonchi or crackles S1, S2 variable Soft abdomen Lower extremity no edema Appears very lethargic and fatigued Awake alert oriented x3 no focal neuro deficit Data : 07/17/21 11:42 07/17/21 12:49 Micro: Microbiology 07/17/21 12:49 Blood Culture - Preliminary Blood SPECIMEN COLLECTED 07/17/21 11:57 Blood Culture - Preliminary Blood SPECIMEN COLLECTED A&P Assessment and plan (1) Pneumonia due to COVID-19 virus: Status: Acute (2) Osteoarthritis of right middle finger: Status: Acute (3) Mild cognitive impairment: Status: Acute (4) Atrial fibrillation: Status: Acute Qualifiers: Atrial fibrillation type: unspecified Qualified Code(s): I48.91 - Unspecified atrial fibrillation (5) Rheumatoid lung disease with rheumatoid arthritis: Status: Acute (6) TARUN on CPAP: Status: Acute (7) Pulmonary hypertension: Status: Acute (8) Interstitial pulmonary fibrosis: Status: Acute Additional A&P Information Acute hypoxia related to COVID-19 Currently saturating well on 2 L nasal cannula Start Decadron remdesivir zinc vitamin C and vitamin D3 We will check CRP and CMP, in case of worsening of oxygen requirement and CRP can escalate her COVID-19 treatment regimen however she would be considered immunocompromised due to chronic use of steroids interstitial lung disease and rheumatoid arthritis She is full code For her diarrhea I will reluctant to add IV fluids, check C. difficile Most likely COVID-19 related gastropathy Ventolin inhalers, Check procalcitonin level Because of underlying multiple comorbid conditions mild pulmonary fibrosis and current COVID-19 she is at risk of deterioration this was explained at the time of encounter with the patient Full code Cardiac diet DVT prophylaxis Eliquis as she has history of A. fib For A. fib RVR will use metoprolol Obstructive sleep apnea auto CPAP in case of worsening of hypoxia would recommend heated high flow Cognitive impairment continue Alzheimer's medications Hypothyroidism: Continue levothyroxine Dr. Phillips did expect restrictive lung disease however pulmonary function test is normal Attestations Medical Necessity Statement*: During the hospital cross more than 2 midnight Time Spent in Patient Care: Greater than 35 minutes Coding Level of Care Code Acute Substation Operator Conversion for [employer] Fwd Diagnoses Pneumonia due to COVID-19 virus U07.1; J12.82 Osteoarthritis of right middle finger M19.041 Mild cognitive impairment G31.84 Atrial fibrillation I48.91 Atrial fibrillation type: unspecified Rheumatoid lung disease with rheumatoid arthritis M05.10 TARUN on CPAP G47.33; Z99.89 Pulmonary hypertension I27.20 Interstitial pulmonary fibrosis J84.10
[2021-07-17 15:49] LABS: Urine Appearance Cloudy (CLEAR); Urine Color Yellow (Yellow); pH Urine 5 (5-7)
[2021-07-17 15:50] LABS: Blood Urine 3+ (Negative); Glucose Urine UA 2+ (Normal); Ketones Urine Negative (Negative); Nitrate Urine Negative (Negative); Protein Urine Neg (Negative); Urobilinogen Urine 1 mg/dL (Negative)
[2021-07-17 15:51] LABS: Bacteria Urine 3+ /hpf; Bilirubin Urine 1+ (Negative); Leukocyte Esterase Urine 2+ (Negative); Mucus Urine 2+ /hpf; WBC Urine 25-40 /hpf (0-5)
[2021-07-17] MEDS: enoxaparin 80 mg/0.8 mL Syringe 60 MG SUBCUT (15:51)
[2021-07-17 15:52] LABS: Add Urine Culture? Yes; Amorphous Sediment Urine 1+ /hpf
[2021-07-17 16:38] LABS: Procalcitonin 1.08 ng/mL (0-0.5)
[2021-07-17] MEDS: iodixanol 320 mg/mL 100mL Btl IV (17:32)
[2021-07-17] MEDS: dexamethasone 4 mg/mL INJ 6 MG IVP (18:00)
[2021-07-17] MEDS: ascorbic acid 500 mg Tablet 1000 MG PO (18:01)
[2021-07-17] MEDS: memantine 5 mg tablet 10 MG PO (18:01)
[2021-07-17] MEDS: pantoprazole DR 40 mg Tablet PO (18:01)
[2021-07-17] MEDS: acetaminophen 325 mg Tablet 650 MG PO (18:02)
[2021-07-17] MEDS: sodium chloride 0.9% 1,000 ML 30 ML IV (18:02)
[2021-07-17] MEDS: apixaban 5 mg Tablet PO (21:02)
[2021-07-17] MEDS: trazodone 100 mg Tablet PO (21:02)
[2021-07-17] MEDS: remdesivir 200 MG in sodium chloride 0.9% (100 ml) 60 ML 100 MG IV (22:14)
[2021-07-18] VITALS (11 sets, daily range): BP systolic 98–108; BP diastolic 55–79; PULSE 62–106; RESP 16–18; TEMP 36.4–37.2; O2SAT 90–99
[2021-07-18 05:02] LABS: ABG PCO2 46.6 mmHg (35-45); Arterial Blood Gas Hematocrit 41.4 % (37-47); Base Excess ABG 3.2 mmol/L (-2.0-2.0); Blood Gas Sample Type Arterial; HCO3 ABG 28.7 mmol/L (22-26)
[2021-07-18 05:04] LABS: Blood Gas Sample Site Brachial, right
[2021-07-18 05:05] LABS: Oxygen Device CPAP
[2021-07-18 06:41] LABS: Basophils % 1.1 %; Hematocrit 36.5 % (37.0-47.0); Hemoglobin 11.2 g/dL (11.5-15.3); Lymphocytes # 1.1 10^3/uL (0.8-4.8); Lymphocytes % 32.5 %; Mean Corpuscular HGB Conc 30.7 g/dL (30.0-36.0); Mean Corpuscular Hemoglobin 30.1 pg (28.0-34.0); Mean Corpuscular Volume 98.1 fl (81-99); Mean Platelet Volume 9.3 fL (7.4-10.4); Monocytes # 0.2 10^3/uL (0.2-0.9); Monocytes % 5.4 %; Neutrophils # 1.64 10^3/uL (1.8-7.7); Nucleated Red Blood Cells % 0 %; Platelet Count 189 10^3/cmm (130-400); Red Blood Count 3.72 10^6/uL (4.1-5.3); Red Cell Distribution Width 16.1 % (12.1-15.1); White Blood Count 3.5 10^3/uL (4.0-10.0)
[2021-07-18 07:09] LABS: Anion Gap 14.1 (5-19); Blood Urea Nitrogen 19 mg/dL (8-23); Calcium 8.4 mg/dL (8.5-10.5); Carbon Dioxide 28 mmol/L (22-29); Chloride 101 mmol/L (98-107); Creatine Phosphokinase 59 U/L (26-192); Creatinine Clr Calc Pharmacy 52.2618; Glucose 131 mg/dL (65-115); Magnesium 1.8 mg/dL (1.7-2.3); Osmolality Calculated 292 mOsm/kg (285-295); Potassium 4.1 mmol/L (3.5-5.1); Sodium 139 mmol/L (136-145)
[2021-07-18 07:44] LABS: Slide Review Slide Review Perform
[2021-07-18] MEDS: azithromycin 250 mg Tablet 500 MG PO (10:10)
[2021-07-18] MEDS: cholecalciferol (vitamin D3) 1,000 unit Tablet 2000 UNIT PO (10:10)
[2021-07-18] MEDS: zinc gluconate 50 mg Tablet PO (10:10)
[2021-07-18] MEDS: levothyroxine 137 mcg Tablet PO (10:10)
[2021-07-18] MEDS: donepezil 5 MG Tablet 10 MG PO (10:10)
[2021-07-18] MEDS: apixaban 5 mg Tablet PO ×2 (10:10→20:21)
[2021-07-18] MEDS: memantine 5 mg tablet 10 MG PO ×2 (10:10→17:19)
[2021-07-18] MEDS: pantoprazole DR 40 mg Tablet PO ×2 (10:11→17:19)
[2021-07-18] MEDS: ascorbic acid 500 mg Tablet 1000 MG PO ×2 (10:11→17:19)
[2021-07-18] MEDS: cefTRIAXone 1,000 MG in sodium chloride 0.9% (plus) 50 ML 100 MG IV (10:11)
--- NOTE | 2021-07-18 12:15 | PM.PN ---
Subjective Subjective: Interval history: Patient is endorsing feeling slightly better however energy level is still the same she is endorsing lethargy and fatigue She is saturating well on 2 L nasal cannula ABG PO2 89 on CPAP 30% PEEP of 10 CTA negative for PE She is endorsing improvement in her diarrhea Daughter is concerned that secondary to neuropathy she has been falling very frequently at home and requested long term placement I told daughter that it might be difficult since long term accept patients 20 days after her COVID-19 diagnosis Patient has history of A. fib however refused anticoagulation in the past, Dr. Marquez has also mentioned in his note, currently on [facility] Vitals/I&O/Wt Last Vital Signs Temp 98.5 F 07/18/21 11:58 Pulse 84 07/18/21 11:58 Resp 16 07/18/21 11:58 BP 108/75 07/18/21 11:58 Pulse Ox 95 07/18/21 11:58 07/17/21 07/18/21 07/18/21 22:59 06:59 14:59 Intake Total 310 / 360 240 / 600 50 / 50 Balance 310 / 360 240 / 600 50 / 50 Weight last 48 hrs Weight 63.701 kg Weight 58.967 kg Physical Exam Narrative: EXAM NARRATIVE: Patient was laying comfortably in her bed saturating well on 2 L nasal cannula S1, S2 Abdomen soft Lower extremity trace edema Left leg looks more swollen as compared to right EOMI, PERRLA NIH 0 Clinically looks slightly dehydrated No joint swelling Data : 07/18/21 06:07 07/18/21 06:07 Micro: Microbiology 07/17/21 14:36 Urine Culture - Preliminary Urine,Clean Catch Gram Negative Rods Gram Negative Rods#2 07/17/21 18:41 MRSA Culture - Final Nose 07/17/21 12:49 Blood Culture - Preliminary Blood SPECIMEN COLLECTED 07/17/21 11:57 Blood Culture - Preliminary Blood SPECIMEN COLLECTED A&P Assessment and plan (1) Interstitial pulmonary fibrosis: Status: Acute (2) Pulmonary hypertension: Status: Acute (3) Pneumonia due to COVID-19 virus: Status: Acute (4) Osteoarthritis of right middle finger: Status: Acute (5) Mild cognitive impairment: Status: Acute (6) Atrial fibrillation: Status: Acute Qualifiers: Atrial fibrillation type: unspecified Qualified Code(s): I48.91 - Unspecified atrial fibrillation (7) Rheumatoid lung disease with rheumatoid arthritis: Status: Acute (8) TARUN on CPAP: Status: Acute (9) Hypothyroidism: Status: Acute Qualifiers: Hypothyroidism type: unspecified Qualified Code(s): E03.9 - Hypothyroidism, unspecified Additional A&P Information Acute hypoxia related to COVID-19 Doing well on 2 L of cannula Overnight she remained stable on CPAP Procalcitonin 1.08, will repeat CRP, LDH tomorrow We will request PT evaluation If she is able to maintain her O2 saturation above 90% on 2 L might plan her discharge in next few days will discuss with the family it might be very difficult to place her to long term as she is not eager to go to any long term at this point, she has capacity to make her decisions manager of finance updated I would like to keep her here until Tuesday because of her multiple comorbid conditions she is at risk of deterioration Full code I would hold off on baricitinib and Actemra for now in setting of immunocompromised state Continue ceftriaxone and azithromycin for now follow-up with MRSA PCR, urine antigens A. fib without RVR currently on Eliquis Mild cognitive impairment history of rheumatoid arthritis interstitial fibrosis recent pulmonary function test was unremarkable does have history of sleep apnea, hypothyroidism I will continue her memantine and donepezil, Lasix on hold secondary to dehydration and diarrhea She is getting Decadron, prednisone 10 mg chronic use currently on hold hemodynamically stable Full code Cardiac diet DVT prophylaxis Eliquis would suffice Attestations Medical Necessity Statement*: Continue medical management Time Spent in Patient Care: 16 - 35 minutes Coding Level of Care Code Acute Open Cut Examiner for [facility] Fwd Diagnoses Interstitial pulmonary fibrosis J84.10 Pulmonary hypertension I27.20 Pneumonia due to COVID-19 virus U07.1; J12.82 Osteoarthritis of right middle finger M19.041 Mild cognitive impairment G31.84 Atrial fibrillation I48.91 Atrial fibrillation type: unspecified Rheumatoid lung disease with rheumatoid arthritis M05.10 TARUN on CPAP G47.33; Z99.89 Hypothyroidism E03.9 Hypothyroidism type: unspecified
[2021-07-18] MEDS: dexamethasone 4 mg/mL INJ 6 MG IVP (17:19)
[2021-07-18] MEDS: remdesivir 100 MG in sodium chloride 0.9% (100 ml) 100 ML IV (17:19)
[2021-07-18] MEDS: trazodone 100 mg Tablet PO (20:21)
[2021-07-18] MEDS: acetaminophen 325 mg Tablet 650 MG PO (23:34)
[2021-07-19] VITALS (11 sets, daily range): BP systolic 105–123; BP diastolic 68–82; PULSE 67–94; RESP 16–18; TEMP 36.5–37; O2SAT 95–98
[2021-07-19 04:25] LABS: Basophils % 1.3 %; Hematocrit 33.7 % (37.0-47.0); Hemoglobin 10.7 g/dL (11.5-15.3); Lymphocytes # 0.8 10^3/uL (0.8-4.8); Lymphocytes % 24.9 %; Mean Corpuscular HGB Conc 31.8 g/dL (30.0-36.0); Mean Corpuscular Hemoglobin 31.1 pg (28.0-34.0); Mean Platelet Volume 9.4 fL (7.4-10.4); Monocytes # 0.2 10^3/uL (0.2-0.9); Monocytes % 4.9 %; Neutrophils # 1.97 10^3/uL (1.8-7.7); Neutrophils % 64.6 %; Nucleated Red Blood Cells % 0 %; Platelet Count 175 10^3/cmm (130-400); Red Blood Count 3.44 10^6/uL (4.1-5.3); Red Cell Distribution Width 16.2 % (12.1-15.1); White Blood Count 3.1 10^3/uL (4.0-10.0)
[2021-07-19 04:56] LABS: Alanine Aminotransferase 24 U/L (0-33); Albumin Level 2.4 g/dL (3.5-5.2); Alkaline Phosphatase 76 IU/L (35-105); Anion Gap 13.7 (5-19); Aspartate Amino Transferase 28 U/L (0-32); Blood Urea Nitrogen 20 mg/dL (8-23); C Reactive Protein 188.1 mg/L (0.0-4.9); Calcium 8.4 mg/dL (8.5-10.5); Carbon Dioxide 25 mmol/L (22-29); Chloride 100 mmol/L (98-107); Creatinine Clr Calc Pharmacy 52.2618; Globulin 2.5 g/dL (1.3-4.6); Glucose 181 mg/dL (65-115); Lactate Dehydrogenase 447 U/L (135-214); Osmolality Calculated 287 mOsm/kg (285-295); Potassium 3.7 mmol/L (3.5-5.1); Sodium 135 mmol/L (136-145); Total Bilirubin 0.2 mg/dL (0.15-1.2); Total Protein 4.9 g/dL (6.6-8.7)
[2021-07-19 05:08] LABS: Slide Review Slide Review Perform
[2021-07-19 06:06] LABS: Procalcitonin 4.39 ng/mL (0-0.5)
[2021-07-19] MEDS: zinc gluconate 50 mg Tablet PO (08:39)
[2021-07-19] MEDS: memantine 5 mg tablet 10 MG PO ×2 (08:39→17:46)
[2021-07-19] MEDS: cholecalciferol (vitamin D3) 1,000 unit Tablet 2000 UNIT PO (08:39)
[2021-07-19] MEDS: donepezil 5 MG Tablet 10 MG PO (08:40)
[2021-07-19] MEDS: azithromycin 250 mg Tablet 500 MG PO (08:40)
[2021-07-19] MEDS: apixaban 5 mg Tablet PO ×2 (08:40→21:42)
[2021-07-19] MEDS: ascorbic acid 500 mg Tablet 1000 MG PO ×2 (08:40→17:45)
[2021-07-19] MEDS: pantoprazole DR 40 mg Tablet PO ×2 (08:40→17:46)
[2021-07-19] MEDS: levothyroxine 137 mcg Tablet PO (08:41)
[2021-07-19 09:29] LABS: Thyroid Stimulating Hormone 0.38 uIU/mL (0.27-4.20)
[2021-07-19 09:30] LABS: Folate Level 7.7 ng/mL (4.8-37.3)
[2021-07-19 10:49] LABS: Vitamin B12 > 2000 pg/mL (232-1245)
[2021-07-19] MEDS: piperacillin-tazobactam 3.375 GM in sodium chloride 0.9% (plus) 50 ML IV ×2 (10:53→18:40)
--- NOTE | 2021-07-19 12:14 | PM.PN ---
Subjective Subjective: Interval history: Seen and examined this morning. Urine culture is positive for E. coli and Enterobacter. Final sensitivities are pending. Patient denies any urinary symptoms at this point but has been on antibiotics since her hospital admission. She is currently on 2 L nasal cannula. She does tell me that she does not want to go to a [place] care facility or rehab facility and would like to go home. She has been discussing this with her daughter. Otherwise she feels well. Vitals/I&O/Wt Last Vital Signs Temp 98.6 F 07/19/21 12:00 Pulse 71 07/19/21 12:00 Resp 17 07/19/21 12:00 BP 107/68 07/19/21 12:00 Pulse Ox 95 07/19/21 12:00 07/18/21 07/19/21 07/19/21 22:59 06:59 14:59 Intake Total 340 / 390 100 / 490 360 / 360 Balance 340 / 390 100 / 490 360 / 360 Weight last 48 hrs Weight 63.701 kg Physical Exam Narrative: EXAM NARRATIVE: General: Alert oriented x3, patient seen sitting up in bed appearing comfortable on 2 L nasal cannula. HEENT: Normocephalic, atraumatic, EOMI, breathing 2 L nasal cannula. Cardio: Regular rate rhythm, normal S1-S2, no murmurs rubs gallops, Respiratory: Good bilateral air entry, no wheezes no rhonchi appreciated GI: Abdomen soft, nontender, nondistended, bowel sounds + Behavior: Appropriate and cooperative Extremities: Trace edema lower extremities bilaterally. Both legs look equal today., no cyanosis Data : 07/19/21 04:05 07/19/21 04:05 Micro: Microbiology 07/17/21 14:36 Urine Culture - Final Urine,Clean Catch Escherichia coli Enterobacter cloacae 07/17/21 12:49 Blood Culture - Preliminary Blood NEGATIVE TO DATE 07/17/21 11:57 Blood Culture - Preliminary Blood NEGATIVE TO DATE 07/17/21 18:41 MRSA Culture - Final Nose A&P Assessment and plan (1) Interstitial pulmonary fibrosis: Status: Acute (2) Pulmonary hypertension: Status: Acute (3) Pneumonia due to COVID-19 virus: Status: Acute (4) Osteoarthritis of right middle finger: Status: Acute (5) Mild cognitive impairment: Status: Acute (6) Atrial fibrillation: Status: Acute Qualifiers: Atrial fibrillation type: unspecified Qualified Code(s): I48.91 - Unspecified atrial fibrillation (7) Rheumatoid lung disease with rheumatoid arthritis: Status: Acute (8) TARUN on CPAP: Status: Acute (9) Hypothyroidism: Status: Acute Qualifiers: Hypothyroidism type: unspecified Qualified Code(s): E03.9 - Hypothyroidism, unspecified Additional A&P Information #Acute hypoxia related to COVID-19 Doing well on 2 L of cannula Overnight she remained stable on CPAP Procalcitonin 1.08, We will request PT evaluation If she is able to maintain her O2 saturation above 90% on 2 L might plan her discharge in next few days will discuss with the family it might be very difficult to place [place] as she is not eager to go to any [place] at this point, she has capacity to make her decisions hospital account manager updated I would like to keep her here until Tuesday because of her multiple comorbid conditions she is at risk of deterioration Full code I would hold off on baricitinib and Actemra for now in setting of immunocompromised state Continue remdesivir and dexamethasone 6 daily. Continue ceftriaxone and azithromycin for now follow-up with MRSA PCR, urine antigens MRSA PCR negative, urine antigens pending. #Urinary tract infection ?Although patient has no symptoms but she has been on antibiotics since admission. E. coli and Enterobacter growing in urine. Sensitive to ceftriaxone. We will switch her to oral upon discharge. #A. fib without RVR currently on Eliquis #Hypokalemia, will replete today. Mild cognitive impairment history of rheumatoid arthritis interstitial fibrosis recent pulmonary function test was unremarkable does have history of sleep apnea, hypothyroidism I will continue her memantine and donepezil, Lasix on hold secondary to dehydration and diarrhea. Diarrhea has resolved at this point. Does not appear clinically fluid overloaded. Blood pressure is soft. We will hold off on starting Lasix again at this point. We will assess her fluid status and go accordingly. She is getting Decadron, prednisone 10 mg chronic use currently on hold hemodynamically stable Full code Cardiac diet DVT prophylaxis Eliquis would suffice Attestations Medical Necessity Statement*: Anticipate another 24 hours of in-hospital stay. Time Spent in Patient Care: less than 15 minutes Coding Level of Care Code Acute Building Surveyor for [facility] Diagnoses Interstitial pulmonary fibrosis J84.10 Pulmonary hypertension I27.20 Pneumonia due to COVID-19 virus U07.1; J12.82 Osteoarthritis of right middle finger M19.041 Mild cognitive impairment G31.84 Atrial fibrillation I48.91 Atrial fibrillation type: unspecified Rheumatoid lung disease with rheumatoid arthritis M05.10 TARUN on CPAP G47.33; Z99.89 Hypothyroidism E03.9 Hypothyroidism type: unspecified
--- NOTE | 2021-07-19 14:49 | PC.OT ---
OT evaluation withheld this date, unable to locate PAPR unit. To attempt on a later day.
[2021-07-19] MEDS: remdesivir 100 MG in sodium chloride 0.9% (100 ml) 100 ML IV (17:45)
[2021-07-19] MEDS: dexamethasone 4 mg/mL INJ 6 MG IVP (18:22)
[2021-07-19] MEDS: trazodone 100 mg Tablet PO (21:42)
[2021-07-20] VITALS (9 sets, daily range): BP systolic 102–146; BP diastolic 66–77; PULSE 70–98; RESP 16–20; TEMP 36.4–36.9; O2SAT 79–97
[2021-07-20] MEDS: piperacillin-tazobactam 3.375 GM in sodium chloride 0.9% (plus) 50 ML IV ×3 (04:30→20:26)
[2021-07-20 06:33] LABS: Basophils % 0.8 %; Hematocrit 32.7 % (37.0-47.0); Hemoglobin 10.4 g/dL (11.5-15.3); Lymphocytes # 0.7 10^3/uL (0.8-4.8); Lymphocytes % 25.5 %; Mean Corpuscular HGB Conc 31.8 g/dL (30.0-36.0); Mean Corpuscular Hemoglobin 30.7 pg (28.0-34.0); Mean Corpuscular Volume 96.5 fl (81-99); Mean Platelet Volume 9.7 fL (7.4-10.4); Monocytes # 0.2 10^3/uL (0.2-0.9); Monocytes % 8.6 %; Neutrophils # 1.63 10^3/uL (1.8-7.7); Neutrophils % 63.9 %; Nucleated Red Blood Cells % 0 %; Platelet Count 197 10^3/cmm (130-400); Red Blood Count 3.39 10^6/uL (4.1-5.3); Red Cell Distribution Width 16.1 % (12.1-15.1); White Blood Count 2.6 10^3/uL (4.0-10.0)
[2021-07-20 07:06] LABS: Alanine Aminotransferase 22 U/L (0-33); Albumin Level 2.6 g/dL (3.5-5.2); Alkaline Phosphatase 66 IU/L (35-105); Anion Gap 12.8 (5-19); Aspartate Amino Transferase 21 U/L (0-32); Blood Urea Nitrogen 22 mg/dL (8-23); Calcium 8.3 mg/dL (8.5-10.5); Carbon Dioxide 27 mmol/L (22-29); Chloride 105 mmol/L (98-107); Creatinine Clr Calc Pharmacy 52.2618; Globulin 2.1 g/dL (1.3-4.6); Glucose 184 mg/dL (65-115); Lactate Dehydrogenase 429 U/L (135-214); Osmolality Calculated 300 mOsm/kg (285-295); Potassium 3.8 mmol/L (3.5-5.1); Sodium 141 mmol/L (136-145); Total Bilirubin 0.2 mg/dL (0.15-1.2); Total Protein 4.7 g/dL (6.6-8.7)
--- NOTE | 2021-07-20 08:08 | P.PN_ITS ---
Subjective Subjective: Interval history: Seen and examined this morning. She states she is ready to go home today and feels well. Home O2 evaluation was done she requires 2 L at rest and 3 L on ambulation. Nursing facilities will not accept her due to her recent diagnosis of Covid. chief clinical dietitian will speak to daughter to see if they would want to go home with home health as physical therapy has recommended. Vitals/I&O/Wt Last Vital Signs Temp 98.1 F 07/20/21 07:48 Pulse 76 07/20/21 07:48 Resp 17 07/20/21 07:48 BP 122/66 07/20/21 07:48 Pulse Ox 96 07/20/21 07:48 07/19/21 07/20/21 07/20/21 22:59 06:59 14:59 Intake Total 150 / 750 170 / 920 Output Total 720 / 720 Balance 150 / 750 -550 / 200 Physical Exam Narrative: EXAM NARRATIVE: General: Alert oriented x3, patient seen sitting up in bed appearing comfortable on 2 L nasal cannula. HEENT: Normocephalic, atraumatic, EOMI, breathing 2 L nasal cannula. Cardio: Regular rate rhythm, normal S1-S2, no murmurs rubs gallops, Respiratory: Good bilateral air entry, mild rhonchi at the bases appreciated. GI: Abdomen soft, nontender, nondistended, bowel sounds + Behavior: Appropriate and cooperative Extremities: Trace edema lower extremities bilaterally. Data : 07/20/21 06:04 07/20/21 06:04 Micro: Microbiology 07/17/21 14:36 Urine Culture - Final Urine,Clean Catch Escherichia coli Enterobacter cloacae A&P Assessment and plan (1) Interstitial pulmonary fibrosis: Status: Acute (2) Pulmonary hypertension: Status: Acute (3) Pneumonia due to COVID-19 virus: Status: Acute (4) Osteoarthritis of right middle finger: Status: Acute (5) Mild cognitive impairment: Status: Acute (6) Atrial fibrillation: Status: Acute Qualifiers: Atrial fibrillation type: unspecified Qualified Code(s): I48.91 - Unspecified atrial fibrillation (7) Rheumatoid lung disease with rheumatoid arthritis: Status: Acute (8) TARUN on CPAP: Status: Acute (9) Hypothyroidism: Status: Acute Qualifiers: Hypothyroidism type: unspecified Qualified Code(s): E03.9 - Hypothyroidism, unspecified Additional A&P Information #Acute hypoxia related to COVID-19 Doing well on 2 L of cannula Overnight she remained stable on CPAP Procalcitonin 1.08, PT recommended home health versus home exercise program. She did very well with physical therapy today. Patient is ready to be discharged and will be going home tomorrow with home health. The daughter's wish was to take her to a nursing home facility but patient recent Covid diagnosis would not let her do that. Continue remdesivir and dexamethasone 6 daily. Continue ceftriaxone and azithromycin. We will switch to oral to complete 5 days course. MRSA PCR negative, urine antigens pending. #Urinary tract infection ?Although patient has no symptoms but she has been on antibiotics since admission. E. coli and Enterobacter growing in urine. Sensitive to ceftriaxone. We will switch her to oral upon discharge. #A. fib without RVR currently on Eliquis #Hypokalemia, will replete today. Mild cognitive impairment history of rheumatoid arthritis interstitial fibrosis recent pulmonary function test was unremarkable does have history of sleep apnea, hypothyroidism I will continue her memantine and donepezil, Lasix on hold secondary to dehydration and diarrhea. She is getting Decadron, prednisone 10 mg chronic use currently on hold hemodynamically stable Full code Cardiac diet DVT prophylaxis Eliquis would suffice Attestations Medical Necessity Statement*: Plan to discharge tomorrow with home health Coding Level of Care Code Acute Loom Doffer for g Fwd Diagnoses Interstitial pulmonary fibrosis J84.10 Pulmonary hypertension I27.20 Pneumonia due to COVID-19 virus U07.1; J12.82 Osteoarthritis of right middle finger M19.041 Mild cognitive impairment G31.84 Atrial fibrillation I48.91 Atrial fibrillation type: unspecified Rheumatoid lung disease with rheumatoid arthritis M05.10 TARUN on CPAP G47.33; Z99.89 Hypothyroidism E03.9 Hypothyroidism type: unspecified
[2021-07-20] MEDS: memantine 5 mg tablet 10 MG PO ×2 (10:32→18:24)
[2021-07-20] MEDS: ascorbic acid 500 mg Tablet 1000 MG PO ×2 (10:32→18:24)
[2021-07-20] MEDS: donepezil 5 MG Tablet 10 MG PO (10:33)
[2021-07-20] MEDS: cholecalciferol (vitamin D3) 1,000 unit Tablet 2000 UNIT PO (10:33)
[2021-07-20] MEDS: pantoprazole DR 40 mg Tablet PO ×2 (10:33→18:24)
[2021-07-20] MEDS: zinc gluconate 50 mg Tablet PO (10:33)
[2021-07-20] MEDS: apixaban 5 mg Tablet PO ×2 (10:33→20:26)
[2021-07-20] MEDS: levothyroxine 137 mcg Tablet PO (10:38)
[2021-07-20] MEDS: azithromycin 250 mg Tablet 500 MG PO (10:38)
[2021-07-20] MEDS: dexamethasone 4 mg/mL INJ 6 MG IVP (17:31)
[2021-07-20] MEDS: remdesivir 100 MG in sodium chloride 0.9% (100 ml) 100 ML IV (18:24)
[2021-07-20] MEDS: trazodone 100 mg Tablet PO (20:26)
[2021-07-21] VITALS (7 sets, daily range): BP systolic 124–153; BP diastolic 78–82; PULSE 58–89; RESP 18–22; TEMP 36.4–36.7; O2SAT 94–96
[2021-07-21] MEDS: piperacillin-tazobactam 3.375 GM in sodium chloride 0.9% (plus) 50 ML IV ×2 (05:05→13:26)
[2021-07-21 06:37] LABS: Hematocrit 33.2 % (37.0-47.0); Hemoglobin 10.5 g/dL (11.5-15.3); Lymphocytes # 0.8 10^3/uL (0.8-4.8); Lymphocytes % 33.6 %; Mean Corpuscular HGB Conc 31.6 g/dL (30.0-36.0); Mean Corpuscular Hemoglobin 30.5 pg (28.0-34.0); Mean Corpuscular Volume 96.5 fl (81-99); Mean Platelet Volume 9.4 fL (7.4-10.4); Monocytes # 0.4 10^3/uL (0.2-0.9); Monocytes % 15.1 %; Neutrophils # 1.12 10^3/uL (1.8-7.7); Neutrophils % 48.3 %; Nucleated Red Blood Cells % 0 %; Platelet Count 239 10^3/cmm (130-400); Red Blood Count 3.44 10^6/uL (4.1-5.3); Red Cell Distribution Width 16.1 % (12.1-15.1); White Blood Count 2.3 10^3/uL (4.0-10.0)
[2021-07-21 07:07] LABS: Alanine Aminotransferase 21 U/L (0-33); Albumin Level 2.7 g/dL (3.5-5.2); Alkaline Phosphatase 64 IU/L (35-105); Anion Gap 13.5 (5-19); Aspartate Amino Transferase 19 U/L (0-32); Blood Urea Nitrogen 23 mg/dL (8-23); C Reactive Protein 29.4 mg/L (0.0-4.9); Calcium 8.3 mg/dL (8.5-10.5); Carbon Dioxide 27 mmol/L (22-29); Chloride 105 mmol/L (98-107); Creatinine Clr Calc Pharmacy 52.2618; Globulin 2.1 g/dL (1.3-4.6); Glucose 178 mg/dL (65-115); Lactate Dehydrogenase 401 U/L (135-214); Osmolality Calculated 302 mOsm/kg (285-295); Potassium 3.5 mmol/L (3.5-5.1); Sodium 142 mmol/L (136-145); Total Bilirubin 0.2 mg/dL (0.15-1.2); Total Protein 4.8 g/dL (6.6-8.7)
--- NOTE | 2021-07-21 08:37 | PM.DCS ---
Discharge Providers Date of Admission: 07/17/21 15:17 Date of Discharge: July 21, 2021 Attending Provider at Admission: Rosalva Schofield MD Attending Provider at Discharge: Dang Kang MD Primary Care Provider: Anahy Ham APN Diagnoses at Discharge Discharge Diagnosis (1) Interstitial pulmonary fibrosis: Status: Acute (2) Pulmonary hypertension: Status: Acute (3) Pneumonia due to COVID-19 virus: Status: Acute (4) Osteoarthritis of right middle finger: Status: Acute (5) Mild cognitive impairment: Status: Acute (6) Atrial fibrillation: Status: Acute Qualifiers: Atrial fibrillation type: unspecified Qualified Code(s): I48.91 - Unspecified atrial fibrillation (7) Rheumatoid lung disease with rheumatoid arthritis: Status: Acute (8) TARUN on CPAP: Status: Acute (9) Hypothyroidism: Status: Acute Qualifiers: Hypothyroidism type: unspecified Qualified Code(s): E03.9 - Hypothyroidism, unspecified Reason for Visit Reason for Visit: COVID, WEAKNESS Hospital Course Hospital Course Pearl Roblero is a 81 year old female Mild interstitial fibrosis involving distal airways, granulomatous disease, moderate emphysema, preserved ejection fraction, pulmonary arterial hypertension PA pressure 35, EF 57%, grade 1 diastolic dysfunction, history of rheumatoid arthritis, takes prednisone for interstitial lung disease presented today with worsening shortness of breath. Patient is stating that her was sick with COVID-19 about 9 to 10 days ago, they are not vaccinated for COVID-19, she started developing shortness of breath and generalized malaise around Tuesday, tested positive for COVID-19 yesterday at the clinic and was reluctant to come to the hospital for further evaluation. Her called EMS yesterday at that time she was saturating in low 90s refused to come to the hospital. Today called EMS again for her worsening shortness of breath and lethargy. She is also experiencing diarrhea. Patient is denying chest pain, fever and vomiting. Course. Patient diarrhea improved. She received remdesivir and dexamethasone 6 mg IV daily. She was also being covered for pneumonia with Zosyn and azithromycin. She is much better compared to admission. Patient will be discharged on her home dose prednisone 10 daily and all her home medications. We had held the Lasix during admission due to dehydration and diarrhea. I will restart that at a lower dose today at 20 mg daily. She is to see her primary care doctor before resuming the 40 mg daily dose. She was also on potassium 20 mEq 3 times daily. I have changed that to daily for now. I will hold Imdur as patient's blood pressure has been normal during hospital admission without Lasix and Imdur. She is to see her primary care doctor before resuming her home dose. All of this was communicated to patient's daughter and over the phone. Patient was started on Eliquis during this hospital admission for atrial fibrillation. I did discuss with the and the daughter regarding risk of bleed since it is a blood thinner and patient does have frequent falls at home as reported by the family. I also discussed with them the risk of having a stroke due to atrial fibrillation if not taking the Eliquis. Patient has dementia and has a waxing waning picture. It is unsure why the family and the patient why she refused the medication when she saw cardiology last time. When asked the patient this morning about it she seemed confused and was unable to give me an answer. I spoke to next of kin which is her and after a lengthy discussion it was decided that they would like the patient to be on Eliquis. I will send a 30-day prescription. She will follow up with her primary and cardiology for further management. I will also send 5-day course of Augmentin to complete her course of antibiotics. Home O2 evaluation was done. She requires 2 L at rest and 3 on exertion. She was set up with oxygen prior to discharge. She says she would like to go home. I also provided patient with a prescription to check BMP within a week to keep an eye on the potassium. Physical Exam Narrative: EXAM NARRATIVE: General: Alert oriented x1, patient seems a little bit confused today. As per nursing staff she has sundowning. When I saw her this morning she had just woken up recently. HEENT: Normocephalic, atraumatic, EOMI, breathing 2 L nasal cannula. Cardio: Regular rate rhythm, normal S1-S2, no murmurs rubs gallops, Respiratory: Good bilateral air entry, mainly clear to auscultation with mild rhonchi. GI: Abdomen soft, nontender, nondistended, bowel sounds + Behavior: Appropriate and cooperative Extremities: Trace edema lower extremities bilaterally. Discharge Data Data Completed and Pending: Completed Studies During Hospitalization Category Date Time Status CT angio chest 71 275 Urgent Cat Scan 07/17/21 15:10 Completed XR chest 1V paulette ble [id number] Urgent Exams 07/17/21 10:35 Completed XR finger RT min 2V [id number] Urgent Exams 07/17/21 11:50 Completed Pending at discharge Category Date Time Status Bacterial Antigen Routine Lab 07/17/21 17:39 Uncollected Blood Culture Sta t Lab 07/17/21 12:49 Results Clostridioides Di fficile PCR Routin e Lab 07/17/21 17:39 Uncollected Sputum Culture Ro utine Lab 07/17/21 17:39 Uncollected Labs from last 24 hours 07/21/21 07/21/21 06:20 06:20 WBC 2.3 L RBC 3.44 L Hgb 10.5 L Hct 33.2 L MCV 96.5 MCH 30.5 MCHC 31.6 RDW 16.1 H Plt Count 239 MPV 9.4 Neut % (Auto) 48.3 Lymph % (Auto) 33.6 Dodge % (Auto) 15.1 Eos % (Auto) 0.0 Baso % (Auto) 0.0 Neut # (Auto) 1.12 L Lymph # (Auto) 0.8 Dodge # (Auto) 0.4 Eos # (Auto) 0.0 Baso # (Auto) 0.0 Nucleated RBC % (a uto) 0 Nucleated RBCs # 0.0 Sodium 142 Potassium 3.5 Chloride 105 Carbon Dioxide 27 Anion Gap 13.5 BUN 23 Creatinine 0.7 GFR Calculation Not Reportable Glucose 178 H Calculated Osmolal ity 302 H Calcium 8.3 L Total Bilirubin 0.2 AST 19 ALT 21 Alkaline Phosphata se 64 Lactate Dehydrogen ase 401 H C-Reactive Protein 29.4 H Total Protein 4.8 L Albumin 2.7 L Globulin 2.1 Vitals: Last Vital Signs Temp 97.7 F 07/21/21 04:00 Pulse 65 07/21/21 06:00 Resp 22 H 07/21/21 04:00 BP 147/78 07/21/21 04:00 Pulse Ox 94 07/21/21 04:00 Discharge Plan Discharge Patient Disposition: Home Health Service Condition: Stable Prescriptions: New Eliquis 5 mg Tablet 5 mg PO BID@0900,2100 30 Days Qty: 60 RF: 0 Augmentin 875-125 mg tablet 1 tab PO BID 5 Days Qty: 10 RF: 0 Continued duloxetine 60 mg capsule, delayed rel sprinkle 60 mg PO DAILY Qty: 90 RF: 1 omeprazole 10 mg capsule,delayed release(DR/EC) 10 mg PO BID Qty: 120 RF: 3 duloxetine 30 mg capsule, delayed rel sprinkle 30 mg PO DAILY RF: 0 prednisone 10 mg tablet 10 mg PO DAILY RF: 0 levothyroxine 137 mcg Tablet 137 mcg PO DAILY RF: 0 donepezil 10 mg Tablet 10 mg PO DAILY RF: 0 trazodone 100 mg Tablet 100 mg PO BEDTIME RF: 0 gabapentin 100 mg capsule 200 mg PO QID RF: 0 memantine 10 mg Tablet 10 mg PO BID RF: 0 temazepam 30 mg capsule 30 mg PO BEDTIME RF: 0 Changed furosemide 40 mg tablet 20 mg PO DAILY Qty: 0 RF: 0 potassium chloride 10 mEq tablet extended release 20 meq PO DAILY Qty: 0 RF: 0 Held isosorbide mononitrate 30 mg tablet extended release 24 hr 30 mg PO DAILY Qty: 90 RF: 3 Hold Instructions: see PCP before resuming Discharge Orders: Discharge Order (Routine); Ordered 07/21/21 Ordered By: Dang Kang Other Ambulatory Orders: Basic Metabolic Panel (Routine) Timeframe: 3 Days Facility: [facility] - Location: Lab - Main Lab Ordered By: Dang Kang Referrals: [facility] [Other] Anahy Ham APN [Primary Care Provider] - 4-7 days Franchesca Hart FNP [Nurse Practitioner] - 1 week Discharge Diet: Cardiac Discharge Activity: Increase activity as tolerated and Oxygen as instructed Patient Instructions: Opioid Safety Activity Restrictions/Additional Instructions: Follow up with PCP within 1 week. Discharge Attestations Time Spent in Discharge Care*: greater than 30 min Specific Discharge Activities: educating and/or supporting family/caregiver and evaluating patient/reviewing data Quality Metrics Clinical Quality Measures During this hospital stay, did patient experience: None Coding Level of Care Code Acute [facility] note Diagnoses Interstitial pulmonary fibrosis J84.10 Pulmonary hypertension I27.20 Pneumonia due to COVID-19 virus U07.1; J12.82 Osteoarthritis of right middle finger M19.041 Mild cognitive impairment G31.84 Atrial fibrillation I48.91 Atrial fibrillation type: unspecified Rheumatoid lung disease with rheumatoid arthritis M05.10 TARUN on CPAP G47.33; Z99.89 Hypothyroidism E03.9 Hypothyroidism type: unspecified
[2021-07-21] MEDS: azithromycin 250 mg Tablet 500 MG PO (10:50)
[2021-07-21] MEDS: levothyroxine 137 mcg Tablet PO (10:50)
[2021-07-21] MEDS: donepezil 5 MG Tablet 10 MG PO (10:50)
[2021-07-21] MEDS: cholecalciferol (vitamin D3) 1,000 unit Tablet 2000 UNIT PO (10:50)
[2021-07-21] MEDS: memantine 5 mg tablet 10 MG PO (10:51)
[2021-07-21] MEDS: pantoprazole DR 40 mg Tablet PO (10:51)
[2021-07-21] MEDS: zinc gluconate 50 mg Tablet PO (10:51)
[2021-07-21] MEDS: ascorbic acid 500 mg Tablet 1000 MG PO (10:51)
[2021-07-21] MEDS: apixaban 5 mg Tablet PO (10:51)
--- NOTE | 2021-07-21 13:57 | PC.OT ---
OT treatment held due to scheduled patient discharge.
--- NOTE | 2021-07-22 12:19 | PC.SOCIAL ---
Eliquis is not covered on formulary therefore, Dr Kang was called and changed to formulary drug Xarelto 20mg once daily. This was communicated verbally to pharmacist at [facility] and updated Daughter of the change and that the medication has to be taken with food. Reviewed for ongoing script for this medication Cardiology or PCP will need to order. Madeline verbalized understanding.
== END 2021-07-21 15:58 | disposition home health service (06) | DRG 177 ==
LOC: ER 15:49 → CSU 15:51 → MEDSURG 16:01
PROVIDERS: Admitting Provider Internal Medicine; Emergency Provider Family Medicine; PCP Nurse Practitioner Family; Visit Provider Internal Medicine
DX: U07.1 COVID-19 (principal); J12.82 Pneumonia due to coronavirus disease 2019; N39.0 Urinary tract infection, site not specified; E86.0 Dehydration; R09.02 Hypoxemia; J84.10 Pulmonary fibrosis, unspecified; I27.20 Pulmonary hypertension, unspecified; G47.33 Obstructive sleep apnea (adult) (pediatric); M19.041 Primary osteoarthritis, right hand; G31.84 Mild cognitive impairment of uncertain or unknown etiology; I48.91 Unspecified atrial fibrillation; M05.10 Rheumatoid lung disease with rheumatoid arthritis of unspecified site; E03.9 Hypothyroidism, unspecified; J43.9 Emphysema, unspecified; B96.20 Unspecified Escherichia coli [E. coli] as the cause of diseases classified elsewhere; E87.6 Hypokalemia; R19.7 Diarrhea, unspecified; M81.0 Age-related osteoporosis without current pathological fracture; I10 Essential (primary) hypertension; G62.9 Polyneuropathy, unspecified; Z79.52 Long term (current) use of systemic steroids; Z91.81 History of falling; Z87.891 Personal history of nicotine dependence
CPT/HCPCS: 36415; 36600; 71045; 71275; 73140; 80048; 80053; 81001; 82550; 82607; 82746; 82803; 83605; 83615; 83735; 83880; 84145; 84443; 84484; 85025; 85378; 85730; 86140; 87040; 87077; 87086; 87186; 87641; 93005; 94660; 94664; 96365; 96367; 96372; 97110; 97116; 97161; 97165; 99285; J0456; J0696; J1100; J1650; J2543; J3535; J7030; J7050; Q0144; Q9967

== ENCOUNTER 2021-07-23 10:58 | Inpatient (IN) | payer MEDICARE, OTHER, SELFPAY ==
[2021-07-23] VITALS (8 sets, daily range): BP systolic 107–118; BP diastolic 65–72; PULSE 66–79; RESP 14–22; TEMP 36.6–37; O2SAT 95–97; BMI 32.8
--- NOTE | 2021-07-23 11:05 | ECG_ITS ---
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 Measurements Intervals [place] Rate: 78 P: 28 NM: 171 QRS: -30 QRSD: 148 T: 26 QT: 398 QTc: 454 Interpretive Statements SINUS RHYTHM BORDERLINE LEFT AXIS DEVIATION [QRS AXIS < -20] RIGHT BUNDLE BRANCH BLOCK [120+ ms QRS DURATION, UPRIGHT V1, 40+ ms S IN I/aVL/V4/V5/V6] Compared to ECG 07/17/2021 13:01:37 Left ventricular hypertrophy no longer present T-wave abnormality no longer present Possible ischemia no longer present Electronically Signed On 07-23-2021 23:55:59 CDT by Susan Grullon M.D. [email or web address]/store/OM/[id number]
--- NOTE | 2021-07-23 11:05 | XR_ITS ---
WS: [id number] Exam: XR chest 1V portable [id number] Date/Time of Exam: 07/23/2021 11:05 AM Reason For Exam: dyspnea Comparison 07/17/2021. Small focal pneumonic infiltrate seen in the left lower lobe suggesting pneumonia. Remaining lung fie lds are clear. No pneumothorax. Normal cardiomediastinal silhouette. No pleural effusion. Regional danni ny elements are intact. Anchoring screw the right humeral head. High riding humeral head suggesting l ameena-standing rotator cuff tear. XR/XR chest 1V portable [id number] IMPRESSION: 1. Left lower lobe infiltrate suspicious for active pneumonia.
--- NOTE | 2021-07-23 11:35 | ED_ITS ---
HPI - General Adult General: Chief complaint: COVID symptoms Stated complaint: WEAKNESS, DIFFICULTY BREATHING Time Seen by Provider: 07/23/21 11:04 History of Present Illness: HPI narrative: Patient is an 81-year-old female with history rheumatoid arthritis, interstitial fibrosis on prednisone, pulmonary hypertension, diastolic heart failure who presents the emergency room after recent discharge from the hospital on 07/21/2020 for Covid pneumonia to home health with home oxygen and augmentin BID x 5 days. Since then patient reports getting weaker and feeling increasingly short of breath. Patient says that she is not currently on any home oxygen. Over the last 2 days, she is unable to get out of bed and reports worsening dyspnea. Today, patient called EMS and was brought to the emergency room for evaluation. On arrival, patient denies any fever or chills but reports worsening cough and shortness of breath. Patient stated no abdominal complaints of nausea/vomiting, chest pain, complaints at this time. Onset:acutely 2 days ago Duration:2 days acutely Location:home Severity:moderate Review of Systems Narrative: Constitutional: No fever, no chills. HEENT: No vision changes CV: No chest pain, no palpitations PULM: +cough, +dyspnea. GI: No abdominal pain, no N/V/D. : No dysuria MSKEL: No muscle pain SKIN: No new rashes, no lesions. NEURO: No headache, no focal weakness. HEME: No visible bruises PSYCH: Normal mood PFSH ED PFSH: Medical History Anxiety and depression Atrial fibrillation and flutter Cardiomyopathy History of OCD (obsessive compulsive disorder) Hypertension Hypothyroidism TARUN on CPAP Osteoarthritis Osteoporosis Rheumatoid arthritis Rheumatoid lung disease with rheumatoid arthritis Surgical History History of arthroplasty of right shoulder History of bladder repair surgery History of cholecystectomy History of foot surgery History of sinus surgery History of spinal fusion Family History Mother Parkinsons disease Social History Smoking and tobacco status: former smoker Quit status (tobacco): has quit using tobacco Year quit tobacco: 1960 Second hand smoke exposure: No Smoking risk assessment/counseling performed?: Yes Alcohol intake: never Adopted: No Lives independently: Yes Household members: spouse Housing: House Marital status: Number of children: 2 service: No Current occupational status: retired Current occupational exposures/hazards: No Pets and animals: Yes Pets & animals: dog(s) History of recent travel: No Current gender identity: Female Laura/Pentecostal: [employer] of [place] Special laura needs: No Physical Exam Narrative: EXAM NARRATIVE: Head: Atraumatic Eyes: PERRL, conjunctiva without injection ENT: Mucous membrane moist NECK: Supple, ROM intact LUNGS: Coarse breath sounds b/l, junky breath sounds in the L lung CV: RRR ABDOMEN: Soft, nontender in all quadrants EXTREMITY: Normal ROM SKIN: No rash or erythema NEURO: Awake and alert, no focal motor deficits PSYCH: Normal mood and affect Course Vital Signs: Vital signs: Vital Signs Temperature 97.9 F 07/23/21 20:00 Pulse Rate 73 07/23/21 21:03 Respiratory Rate 18 07/23/21 20:49 Blood Pressure 116/71 07/23/21 20:00 Pulse Oximetry 97 07/23/21 20:49 MDM - General Adult MDM Narrative: Medical decision making narrative: 81-year-old female full code with history of interstitial fibrosis, rheumatoid arthritis on prednisone 10 mg, who recently discharged from the hospital for Covid pneumonia on 07/21 presenting to the emergency room for worsening dyspnea and cough. On exam, patient is afebrile today. Patient is noted to have coarse breath sounds left side. Patient has no increased work of breathing requiring noninvasive or invasive support. Chest x-ray showed new active left-sided pneumonia that is new from prior CTA on 07/17/2021. Patient tells me that she prefers to have higher level of care than home health at this time given general weakness and severity of her symptoms. Patient s/p vancomycin, cefepime, and azithromycin Disposition: Admission for serial observation, placement, and IV antibiotics Lab Data: Labs: Lab Results 07/23/21 07/23/21 07/23/21 12:20 12:20 12:20 WBC 4.4 10^3/uL 10^3/ uL (4.0-10.0) RBC 3.36 10^6/uL L 10 ^6/uL (4.1-5.3) Hgb 10.1 g/dL L g/dL (11.5-15.3) Hct 32.7 % L % (37.0-47.0) MCV 97.3 fl fl (81-99) MCH 30.1 pg pg (28.0-34.0) MCHC 30.9 g/dL g/dL (30.0-36.0) RDW 15.7 % H % (12.1-15.1) Plt Count 263 10^3/cmm 10^3 /cmm (130-400) MPV 9.4 fL fL (7.4-10.4) Lymph % (Auto) Not Reportable Bowman % (Auto) Not Reportable Lymph # (Auto) Not Reportable Bowman # (Auto) Not Reportable Total Counted 100 (0-100) Atypical Lymphs % 3.0 % % (0-5) Absolute Neutrophi ls 2.6 10^3/cmm 10^3 /cmm (1.4-6.5) Segmented Neutroph ils 40 % % Abs Segm Neuts (Ma n) 1.8 10/cmm 10/cmm (1.6-7.1) Band Neutrophils 19.0 % % Abs Band Neuts (Ma n) 0.8 10^3/cmm 10^3 /cmm (0.0-1.2) Absolute Lymphocyt es 1.1 10^3/cmm L 10 ^3/cmm (1.2-3.4) Lymphocytes (Manua l) 21 % % Monocytes (Manual) 7.0 % % Absolute Monocytes 0.3 10^3/cmm 10^3 /cmm (0.1-0.6) Eosinophils (Manua l) 1 % % Absolute Eosinophi ls 0.0 10^3/cmm 10^3 /cmm (0.0-0.7) Basophils (Manual) Not Reportable Metamyelocytes 6.0 % % Myelocytes 3.0 % % Platelet Estimate Normal (Normal) Ovalocytes Trace Sodium 134 mmol/L L mmol /L (136-145) Potassium 4.0 mmol/L mmol/L (3.5-5.1) Chloride 99 mmol/L mmol/L (98-107) Carbon Dioxide 28 mmol/L mmol/L (22-29) Anion Gap 11.0 (5-19) BUN 14 mg/dL mg/dL (8-23) Creatinine 0.7 mg/dL mg/dL (0.5-0.9) GFR Calculation Not Reportable Glucose 204 mg/dL H mg/dL (65-115) Calculated Osmolal ity 284 mOsm/kg L mOs m/kg (285-295) Calcium 7.2 mg/dL L mg/dL (8.5-10.5) Total Bilirubin 0.2 mg/dL mg/dL (0.15-1.2) AST 27 U/L U/L (0-32) ALT 25 U/L U/L (0-33) Alkaline Phosphata se 74 IU/L IU/L (35-105) Troponin T Baselin e 41 ng/L H ng/L (0-10) NT-Pro-B Natriuret Pep 208 pg/mL pg/mL (0-450) Total Protein 4.1 g/dL L g/dL (6.6-8.7) Albumin 2.7 g/dL L g/dL (3.5-5.2) Globulin 1.4 g/dL g/dL (1.3-4.6) Lipase 50 U/L U/L (13-60) Imaging Data^: Other Imaging: Radiologist's impression: [address] [id number] ReportSigned Patient: Pearl Roblero #: [id number]: 9Acct#:[id number]/Sex: 81 / FADM Date: 07/23/21Loc: ERRoom/Bed:Attending Dr: Ordering Provider/Ordering MD: Krysta Bazan MD Date of Service: 07/23/21 Procedure(s): XR chest 1V portable [id number] Accession Number(s): [id number] Report Number: [id number] WS: [id number] Exam: XR chest 1V portable [id number] Date/Time of Exam: 07/23/2021 11:05 AM Reason For Exam: dyspnea Comparison 07/17/2021. Small focal pneumonic infiltrate seen in the left lower lobe suggesting pneumonia. Remaining lung cabello are clear. No pneumothorax. Normal cardiomediastinal silhouette. No pleural effusion. Regional bony elements are intact. Anchoring screw the right humeral head. High riding humeral head suggesting long-standing rotator cuff tear. XR/XR chest 1V portable [id number] IMPRESSION: 1. Left lower lobe infiltrate suspicious for active pneumonia. Dictated By:Elizabeth Naidu By:Elizabeth Naidu Date/Time:07/23/21 1123DD/ 1119 Discharge Plan Discharge Patient Disposition: Admitted As Inpatient Admit Provider: Zachery Alfaro Clinical Impression: Hypoxemia, Bacterial pneumonia Condition: Stable Coding Level of Care Code ED Wax Pourer for Yara Jim
[2021-07-23] MEDS: vancomycin 1,000 MG in sodium chloride 0.9% 250 ML 250 MG IV (12:08)
[2021-07-23 12:35] LABS: Hematocrit 32.7 % (37.0-47.0); Hemoglobin 10.1 g/dL (11.5-15.3); Mean Corpuscular HGB Conc 30.9 g/dL (30.0-36.0); Mean Corpuscular Hemoglobin 30.1 pg (28.0-34.0); Mean Corpuscular Volume 97.3 fl (81-99); Mean Platelet Volume 9.4 fL (7.4-10.4); Platelet Count 263 10^3/cmm (130-400); Red Blood Count 3.36 10^6/uL (4.1-5.3); Red Cell Distribution Width 15.7 % (12.1-15.1); White Blood Count 4.4 10^3/uL (4.0-10.0)
[2021-07-23 12:53] LABS: Alanine Aminotransferase 25 U/L (0-33); Albumin Level 2.7 g/dL (3.5-5.2); Alkaline Phosphatase 74 IU/L (35-105); Aspartate Amino Transferase 27 U/L (0-32); Blood Urea Nitrogen 14 mg/dL (8-23); Calcium 7.2 mg/dL (8.5-10.5); Carbon Dioxide 28 mmol/L (22-29); Chloride 99 mmol/L (98-107); Globulin 1.4 g/dL (1.3-4.6); Glucose 204 mg/dL (65-115); Lipase 50 U/L (13-60); Osmolality Calculated 284 mOsm/kg (285-295); Sodium 134 mmol/L (136-145); Total Bilirubin 0.2 mg/dL (0.15-1.2); Total Protein 4.1 g/dL (6.6-8.7)
[2021-07-23 12:55] LABS: Troponin(5th) Baseline 41 ng/L (0-10)
--- NOTE | 2021-07-23 13:05 | ECG_ITS ---
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 Measurements Intervals [place] Rate: 73 P: 25 [place]: 176 QRS: -31 QRSD: 155 T: 26 QT: 415 QTc: 459 Interpretive Statements SINUS RHYTHM LEFT AXIS DEVIATION [QRS AXIS < -30] RIGHT BUNDLE BRANCH BLOCK [120+ ms QRS DURATION, UPRIGHT V1, 40+ ms S IN I/aVL/V4/V5/V6] Compared to ECG 07/23/2021 12:17:03 No significant changes Electronically Signed On 07-24-2021 0:00:54 CDT by Susan Grullon M.D. [email or web address].[email or web address]/store/[id number]
[2021-07-23 13:19] LABS: NT Pro B Type Natriuretic Pept 208 pg/mL (0-450)
[2021-07-23] MEDS: cefepime 1,000 MG in sodium chloride 0.9% (plus) 50 ML 100 MG IV (13:37)
[2021-07-23 13:48] LABS: Absolute Segmented Neutrophil 1.8 10/cmm (1.6-7.1); Band Neutrophils Absolute 0.8 10^3/cmm (0.0-1.2); Segmented Neutrophils 40 %; Total Cells Counted 100 (0-100)
[2021-07-23 13:49] LABS: Absolute Neutrophil 2.6 10^3/cmm (1.4-6.5); Eosinophils 1 %; Lymphocytes 21 %; Lymphocytes Absolute 1.1 10^3/cmm (1.2-3.4); Monocytes Absolute 0.3 10^3/cmm (0.1-0.6); Platelet Estimate Normal (Normal)
[2021-07-23 13:50] LABS: Ovalocytes Trace
[2021-07-23 15:52] LABS: Troponin 5 2HR 34.39 ng/L (0-10)
[2021-07-23 15:59] LABS: Troponin 5 2HR Delta -6.61 ABS# (0-10)
--- NOTE | 2021-07-23 16:27 | P.HP_ITS ---
Providers/Chief Complaint Primary Care Provider: Anahy Ham APN Chief Complaint: WEAKNESS, DIFFICULTY BREATHING History of Present Illness Pearl Roblero is a 81 year old female with past medical history of HFpEF, RA, ILD, recently discharged after being managed for Covid-19 pneumonia, on 3 L home oxygen , came in today with chief complaint of worsening shortness of breath, as well as generalized body pain and weakness. Upon arrival in the ER she was worked up for above-mentioned complaint. Pertinent imaging studies: X-ray chest: New left lower infiltrate EKG:NSR, LAD,RBB Pertinent labs: WBC 4.4, H&H:10.1/32, PLT :263, serum sodium 134 serum potassium 4, BUN and serum creatinine 14/0.7 , troponin trend without significant delta. Patient received 1 dose of Vanco and cefepime in the ER. Review of Systems Const: Denies: fever(s) Card: Denies: palpitations, edema or swelling of feet/ankles Resp: Denies: wheezing or pain on inspiration GI: Denies: abdominal pain, nausea, vomiting, diarrhea or constipation : Denies: flank pain Musc: Denies: back pain or extremity swelling Neuro: Denies: headache(s) or confusion Medications/Allergies Home Medications Medication Instructions Recorded Confirmed Last Taken Type duloxetine 60 mg capsule,delayed 60 mg PO DAILY #90 cap 04/29/20 07/23/21 07/23/21 Rx release sprinkle duloxetine 30 mg capsule,delayed 30 mg PO DAILY 06/09/20 07/23/21 07/23/21 History release sprinkle prednisone 10 mg tablet 10 mg PO DAILY 06/16/20 07/23/21 07/23/21 History isosorbide mononitrate 30 mg 30 mg PO DAILY #90 tab 06/22/21 07/23/21 07/23/21 Rx tablet,extended release 24 hr donepezil 10 mg PO DAILY 07/17/21 07/23/21 07/23/21 History gabapentin 200 mg PO QID 07/17/21 07/23/21 07/23/21 History levothyroxine 137 mcg PO DAILY 07/17/21 07/23/21 07/23/21 History memantine 10 mg PO BID 07/17/21 07/23/21 07/23/21 History temazepam 30 mg PO BEDTIME 07/17/21 07/23/21 07/22/21 History amoxicillin-pot clavulanate 1 tab PO BID 5 Days #10 tab 07/21/21 07/23/21 07/22/21 Rx [Augmentin] furosemide 20 mg PO DAILY #0 tab 07/21/21 07/23/21 07/23/21 Rx potassium chloride 20 meq PO DAILY #0 tab 07/21/21 07/23/21 07/23/21 Rx albuterol sulfate 2 puff INHALATION Q6H PRN 07/23/21 07/23/21 Unknown History omeprazole 10 mg PO DAILY 07/23/21 07/23/21 07/23/21 History rivaroxaban [Xarelto] 20 mg PO DAILY MDD see pharmacy 07/23/21 07/23/21 Unknown History comment Allergies Allergy/AdvReac Type Severity Reaction Status Date / Time methotrexate Allergy Severe Cough Verified 11/24/20 10:20 PFSH Acute PFSH: Medical History Anxiety and depression Atrial fibrillation and flutter Cardiomyopathy History of OCD (obsessive compulsive disorder) Hypertension Hypothyroidism TARUN on CPAP Osteoarthritis Osteoporosis Rheumatoid arthritis Rheumatoid lung disease with rheumatoid arthritis Surgical History History of arthroplasty of right shoulder History of bladder repair surgery History of cholecystectomy History of foot surgery History of sinus surgery History of spinal fusion Family History Mother Parkinsons disease Social History Smoking and tobacco status: former smoker Quit status (tobacco): has quit using tobacco Year quit tobacco: 1960 Second hand smoke exposure: No Smoking risk assessment/counseling performed?: Yes Alcohol intake: never Adopted: No Lives independently: Yes Household members: spouse Housing: House Marital status: Number of children: 2 service: No Current occupational status: retired Current occupational exposures/hazards: No Pets and animals: Yes Pets & animals: dog(s) History of recent travel: No Current gender identity: Female Laura/Orthodox: [employer] of [place] Special laura needs: No Vitals/I&O/Wt Last Vital Signs Temp 98.6 F 07/23/21 11:02 Pulse 72 07/23/21 11:10 Resp 18 07/23/21 11:10 BP 107/72 07/23/21 11:10 Pulse Ox 95 07/23/21 14:43 07/23/21 07/23/21 07/23/21 06:59 14:59 22:59 Intake Total 250 / 250 Balance 250 / 250 Weight last 48 hrs Weight 86.581 kg Physical Exam Const: COMMON NORMALS: patient oriented x3 HENMT: COMMON NORMALS: normocephalic and atraumatic HEAD & SCALP: normocephalic and atraumatic Resp: OTHER: Bilateral coarse breath sounds, bilateral dry inspiratory cr ackles present in both the lungs cabello Cardio: COMMON NORMALS: regular rate, regular rhythm, S1 normal heart sound present, S2 normal heart sound present, No gallops present (Cardio), No murmurs present (Cardio), No rub (Cardio) and Peripheral pulses 2+ throughout RATE: regular rate RHYTHM: regular rhythm HEART SOUNDS: S1 normal heart sound present and S2 normal heart sound present PERIPHERAL PULSES: Peripheral pulses 2+ throughout GI: COMMON NORMALS: Normal to inspection, nondistended, normoactive bowel sounds present, Soft to palpation, non-tender, No hepatosplenomegaly present and no masses AUSCULTATION: Yes normoactive bowel sounds PALPATION: Yes Soft to palpation and Yes No hepatosplenomegaly present RECTAL EXAM: deferred Extremity: COMMON NORMALS: no clubbing, cyanosis or edema and no pedal edema Neuro: COMMON NORMALS: patient oriented x3 Data : 07/23/21 12:20 07/23/21 12:20 A&P Assessment and plan (1) Pneumonia: Patient came in with worsening shortness of breath, nonproductive dry cough, x-ray chest:New infiltrate in left lower lung field. Sputum culture Urine Legionella antigen Urine bacterial antigen Continue ceftriaxone and azithromycin for now. Mucinex Incentive spirometer Flutter valve Supplemental oxygen as needed Status: Acute (2) Interstitial lung disease: Continue prednisone 10 mg p.o. daily Status: Acute (3) Atrial fibrillation: Currently rate is well controlled. And she is in sinus rhythm. Telemetry Xarelto Status: Acute Qualifiers: Atrial fibrillation type: unspecified Qualified Code(s): I48.91 - Unspecified atrial fibrillation (4) Heart failure with preserved ejection fraction: Currently compensated Continue Lasix 40 mg IV daily Intake output charting Daily weight K>4,MG>2 Status: Acute (5) Hypothyroidism: Levothyroxine 137 MCG PO DAILY Status: Acute Qualifiers: Hypothyroidism type: unspecified Qualified Code(s): E03.9 - Hypothyroidism, unspecified (6) Rheumatoid arthritis: Status: Acute Qualifiers: Rheumatoid arthritis location: multiple sites Rheumatoid factor presence: unspecified presence Qualified Code(s): M06.9 - Rheumatoid arthritis, unspecified (7) Hypertension: Status: Acute Qualifiers: Hypertension type: essential hypertension Qualified Code(s): I10 - Essential (primary) hypertension Additional A&P Information Recent history of COVID-19 pneumonia: Discharged on 3 L supplemental home oxygen. CODE STATUS: Full code DVT prophylaxis: Not needed as the patient is on Xarelto Disposition: Discharge to home or longterm. Attestations Medical Necessity Statement*: Patient needs to be in the hospital for management of pneumonia.Anticipated length of stay greater than 2 midnights. Coding Level of Care Code Acute Porcelain Waxer for [facility] Fwd Diagnoses Pneumonia J18.9 Interstitial lung disease J84.9 Atrial fibrillation I48.91 Atrial fibrillation type: unspecified Heart failure with preserved ejection fraction I50.30 Hypothyroidism E03.9 Hypothyroidism type: unspecified Rheumatoid arthritis M06.9 Rheumatoid arthritis location: multiple sites Rheumatoid factor presence: unspecified presence Hypertension I10 Hypertension type: essential hypertension
--- NOTE | 2021-07-23 17:05 | ECG_ITS ---
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 Measurements Intervals [place] Rate: 73 P: -10 [place]: 179 QRS: -28 QRSD: 155 T: 25 QT: 403 QTc: 446 Interpretive Statements SINUS RHYTHM BORDERLINE LEFT AXIS DEVIATION [QRS AXIS < -20] RIGHT BUNDLE BRANCH BLOCK [120+ ms QRS DURATION, UPRIGHT V1, 40+ ms S IN I/aVL/V4/V5/V6] Compared to ECG 07/23/2021 16:14:02 No significant changes Electronically Signed On 07-24-2021 0:01:48 CDT by Susan Grullon M.D. [id number]
[2021-07-23] MEDS: cefTRIAXone 1,000 MG in sodium chloride 0.9% (plus) 50 ML 100 MG IV (17:28)
[2021-07-23] MEDS: gabapentin 100 mg Capsule 200 MG PO ×2 (17:32→20:32)
[2021-07-23 19:25] LABS: Troponin 5 6HR 36.08 ng/L (0-10)
[2021-07-23] MEDS: memantine 5 mg tablet 10 MG PO (20:31)
[2021-07-23] MEDS: guaiFENesin 600 mg Tablet PO (20:32)
[2021-07-23] MEDS: temazepam 15 mg Capsule 30 MG PO (20:32)
[2021-07-23] MEDS: ipratropium-albuterol 3 mL Neb INHALATION (20:49)
[2021-07-24] VITALS (12 sets, daily range): BP systolic 90–130; BP diastolic 57–79; PULSE 61–123; RESP 16–26; TEMP 36.1–36.9; O2SAT 90–96
[2021-07-24] MEDS: ipratropium-albuterol 3 mL Neb INHALATION ×4 (03:11→21:27)
[2021-07-24 06:24] LABS: Basophils % 0.9 %; Eosinophils # 0.1 10^3/uL (0.0-0.8); Eosinophils % 1.3 %; Hematocrit 37.5 % (37.0-47.0); Hemoglobin 11.7 g/dL (11.5-15.3); Lymphocytes # 1.5 10^3/uL (0.8-4.8); Mean Corpuscular HGB Conc 31.2 g/dL (30.0-36.0); Mean Corpuscular Volume 99.2 fl (81-99); Mean Platelet Volume 9.3 fL (7.4-10.4); Monocytes # 0.2 10^3/uL (0.2-0.9); Monocytes % 5.4 %; Neutrophils % 42.6 %; Nucleated Red Blood Cells % 0.4 %; Platelet Count 325 10^3/cmm (130-400); Red Blood Count 3.78 10^6/uL (4.1-5.3); White Blood Count 4.5 10^3/uL (4.0-10.0)
[2021-07-24 06:52] LABS: Alanine Aminotransferase 25 U/L (0-33); Albumin Level 2.6 g/dL (3.5-5.2); Alkaline Phosphatase 79 IU/L (35-105); Anion Gap 13.1 (5-19); Aspartate Amino Transferase 34 U/L (0-32); Blood Urea Nitrogen 12 mg/dL (8-23); Calcium 7.7 mg/dL (8.5-10.5); Carbon Dioxide 29 mmol/L (22-29); Chloride 99 mmol/L (98-107); Globulin 2.6 g/dL (1.3-4.6); Glucose 92 mg/dL (65-115); Magnesium 1.8 mg/dL (1.7-2.3); NT Pro B Type Natriuretic Pept 396 pg/mL (0-450); Osmolality Calculated 283 mOsm/kg (285-295); Potassium 4.1 mmol/L (3.5-5.1); Sodium 137 mmol/L (136-145); Total Bilirubin 0.3 mg/dL (0.15-1.2); Total Protein 5.2 g/dL (6.6-8.7)
[2021-07-24] MEDS: azithromycin 250 mg Tablet 500 MG PO (07:40)
[2021-07-24] MEDS: donepezil 5 MG Tablet 10 MG PO (07:40)
[2021-07-24] MEDS: guaiFENesin 600 mg Tablet PO ×2 (07:41→16:37)
[2021-07-24] MEDS: FUROsemide 10 mg/mL SDV 4mL 40 MG IVP (07:41)
[2021-07-24] MEDS: gabapentin 100 mg Capsule 200 MG PO ×4 (07:41→20:21)
[2021-07-24] MEDS: duloxetine 60 mg Capsule PO (07:41)
[2021-07-24] MEDS: levothyroxine 137 mcg Tablet PO (07:42)
[2021-07-24] MEDS: potassium chloride ER 10 mEq Tablet 20 MEQ PO (07:42)
[2021-07-24] MEDS: memantine 5 mg tablet 10 MG PO ×2 (07:42→16:37)
[2021-07-24] MEDS: rivaroxaban 10 mg Tablet 20 MG PO (07:42)
[2021-07-24] MEDS: pantoprazole DR 40 mg Tablet PO (07:42)
[2021-07-24] MEDS: isosorbide mononitrate ER 30 mg Tablet PO (07:42)
[2021-07-24] MEDS: predniSONE 10 mg Tablet PO (07:42)
[2021-07-24 07:52] LABS: Slide Review Slide Review Perform
--- NOTE | 2021-07-24 10:26 | PC.CHAP ---
Pastoral Care Encounter/Spiritual Assessment Type of Contact [] Declined b2b outside sales representative visit [] Patient/Family/Request visit [] Outpatient visit [] Follow-up visit [] Physician referral [] Code/Alert [x] Routine visit [] Staff referral [] Actively dying [] Patient sleeping [] Family support [] [] Out of room [] Palliative care [] [] Receiving care in room [] Pre-surgical visit [] Trauma [] Long length of stay [] ICU visit [] Other: Relational/Emotional Strength [x] Patient feels connected with others/family/visitors/staff [] Distress [] Loneliness/isolation [] Abandonment Spirituality of Patient [x] Person of Laura [x] Attends Orthodox of their Laura [x] Believes in Prayer [] Reads Bible or Gnosticism materials [] There are Spiritual issues to be addressed Table Setter Interventions [x] Prayer [] Active listening [] Non-anxious presence [] Spiritual/emotional support [] Crisis/trauma care [] Spiritual counseling [] Bereavement support [] Provided bereavement packet [] Provided Bible/devotional materials [] Provided toy/stuffed animal, coloring book to patient or family member [] Provided Communion [] Anointing/Crane [] Salvation [x] Completed spiritual assessment [] Other: Impact on Illness or Injury [] Angry [] Fearful [] Anxious [] Often cries [] Exhaustion [] Unable to work [] Unable to attend yarsani [] Unable to walk/stand [] Unable to read [] Unable to drive [] Unable to eat/drink [] Unable to sleep [] Unable to be with family [] Patient intubated [] Other: Summary Time spent with patient 16 min
--- NOTE | 2021-07-24 14:48 | PM.PN ---
Subjective Subjective: Interval history: Patient was seen and examined this morning, continues to complain of feeling tired, currently requiring higher supplemental oxygen as compared to yesterday. Medications: Reviewed: Yes Vitals/I&O/Wt Last Vital Signs Temp 98.3 F 07/24/21 11:43 Pulse 119 H 07/24/21 14:42 Resp 17 07/24/21 14:42 BP 98/65 07/24/21 11:43 Pulse Ox 93 07/24/21 14:42 07/23/21 07/24/21 07/24/21 22:59 06:59 14:59 Intake Total 340 / 590 240 / 240 Balance 340 / 590 240 / 240 Weight last 48 hrs Weight 66.451 kg Weight 86.581 kg Physical Exam Const: COMMON NORMALS: patient oriented x3 HENMT: COMMON NORMALS: normocephalic and atraumatic HEAD & SCALP: normocephalic and atraumatic Resp: OTHER: Bilateral coarse breath sounds, bilateral dry inspiratory crackles present in both the lungs cabello Cardio: COMMON NORMALS: regular rate, regular rhythm, S1 normal heart sound present, S2 normal heart sound present, No gallops present (Cardio), No murmurs present (Cardio), No rub (Cardio) and Peripheral pulses 2+ throughout RATE: regular rate RHYTHM: regular rhythm HEART SOUNDS: S1 normal heart sound present and S2 normal heart sound present PERIPHERAL PULSES: Peripheral pulses 2+ throughout GI: COMMON NORMALS: Normal to inspection, nondistended, normoactive bowel sounds present, Soft to palpation, non-tender, No hepatosplenomegaly present and no masses AUSCULTATION: Yes normoactive bowel sounds PALPATION: Yes Soft to palpation and Yes No hepatosplenomegaly present RECTAL EXAM: deferred Extremity: COMMON NORMALS: no clubbing, cyanosis or edema and no pedal edema Neuro: COMMON NORMALS: patient oriented x3 Data : 07/24/21 05:40 07/24/21 05:40 A&P Assessment and plan (1) Pneumonia: Patient came in with worsening shortness of breath, nonproductive dry cough, x-ray chest:New infiltrate in left lower lung field. Sputum culture Urine Legionella antigen Urine bacterial antigen Continue ceftriaxone and azithromycin for now. Mucinex Incentive spirometer Flutter valve Supplemental oxygen as needed Status: Acute (2) Interstitial lung disease: Continue prednisone 10 mg p.o. daily Status: Acute (3) Atrial fibrillation: Currently rate is well controlled. And she is in sinus rhythm. Telemetry Xarelto Status: Acute Qualifiers: Atrial fibrillation type: unspecified Qualified Code(s): I48.91 - Unspecified atrial fibrillation (4) Heart failure with preserved ejection fraction: Currently compensated Continue Lasix 40 mg po daily Intake output charting Daily weight K>4,MG>2 Status: Acute (5) Hypothyroidism: Levothyroxine 137 MCG PO DAILY Status: Acute Qualifiers: Hypothyroidism type: unspecified Qualified Code(s): E03.9 - Hypothyroidism, unspecified (6) Rheumatoid arthritis: Status: Acute Qualifiers: Rheumatoid arthritis location: multiple sites Rheumatoid factor presence: unspecified presence Qualified Code(s): M06.9 - Rheumatoid arthritis, unspecified (7) Hypertension: Status: Acute Qualifiers: Hypertension type: essential hypertension Qualified Code(s): I10 - Essential (primary) hypertension Additional A&P Information Recent history of COVID-19 pneumonia: Discharged on 3 L supplemental home oxygen. CODE STATUS: Full code DVT prophylaxis: Not needed as the patient is on Xarelto Disposition: Discharge to home or residential. Attestations Medical Necessity Statement*: Patient is still in hospital for management of pneumonia. Coding Level of Care Code Acute Marketing Business Analyst for [facility] Fwd Exam Detailed Diagnoses Pneumonia J18.9 Interstitial lung disease J84.9 Atrial fibrillation I48.91 Atrial fibrillation type: unspecified Heart failure with preserved ejection fraction I50.30 Hypothyroidism E03.9 Hypothyroidism type: unspecified Rheumatoid arthritis M06.9 Rheumatoid arthritis location: multiple sites Rheumatoid factor presence: unspecified presence Hypertension I10 Hypertension type: essential hypertension
[2021-07-24] MEDS: cefTRIAXone 1,000 MG in sodium chloride 0.9% (plus) 50 ML 100 MG IV (16:37)
[2021-07-24] MEDS: temazepam 15 mg Capsule 30 MG PO (20:21)
[2021-07-25] VITALS (10 sets, daily range): BP systolic 96–166; BP diastolic 64–77; PULSE 69–108; RESP 15–22; TEMP 36.3–37.1; O2SAT 86–94
[2021-07-25] MEDS: ipratropium-albuterol 3 mL Neb INHALATION ×4 (02:30→21:01)
[2021-07-25 06:18] LABS: Basophils # 0.1 10^3/uL (0.0-0.1); Eosinophils % 0.6 %; Hematocrit 37.7 % (37.0-47.0); Hemoglobin 11.7 g/dL (11.5-15.3); Lymphocytes # 2.4 10^3/uL (0.8-4.8); Lymphocytes % 38.3 %; Mean Corpuscular Hemoglobin 30.2 pg (28.0-34.0); Mean Corpuscular Volume 97.2 fl (81-99); Mean Platelet Volume 9.6 fL (7.4-10.4); Monocytes # 0.3 10^3/uL (0.2-0.9); Monocytes % 5.5 %; Neutrophils # 2.71 10^3/uL (1.8-7.7); Neutrophils % 43.8 %; Nucleated Red Blood Cells % 0.3 %; Platelet Count 349 10^3/cmm (130-400); Red Blood Count 3.88 10^6/uL (4.1-5.3); Red Cell Distribution Width 15.9 % (12.1-15.1); White Blood Count 6.2 10^3/uL (4.0-10.0)
[2021-07-25 06:31] LABS: Alanine Aminotransferase 25 U/L (0-33); Albumin Level 2.7 g/dL (3.5-5.2); Alkaline Phosphatase 82 IU/L (35-105); Anion Gap 14.6 (5-19); Aspartate Amino Transferase 34 U/L (0-32); Carbon Dioxide 28 mmol/L (22-29); Chloride 96 mmol/L (98-107); Globulin 2.5 g/dL (1.3-4.6); Glucose 73 mg/dL (65-115); Potassium 3.6 mmol/L (3.5-5.1); Sodium 135 mmol/L (136-145); Total Bilirubin 0.3 mg/dL (0.15-1.2); Total Protein 5.2 g/dL (6.6-8.7)
[2021-07-25 06:48] LABS: Blood Urea Nitrogen 16 mg/dL (8-23); Calcium 8.4 mg/dL (8.5-10.5); Osmolality Calculated 280 mOsm/kg (285-295)
[2021-07-25 07:11] LABS: Slide Review Slide Review Perform
[2021-07-25] MEDS: azithromycin 250 mg Tablet 500 MG PO (08:05)
[2021-07-25] MEDS: gabapentin 100 mg Capsule 200 MG PO ×4 (08:06→20:12)
[2021-07-25] MEDS: donepezil 5 MG Tablet 10 MG PO (08:06)
[2021-07-25] MEDS: duloxetine 60 mg Capsule PO (08:06)
[2021-07-25] MEDS: pantoprazole DR 40 mg Tablet PO (08:07)
[2021-07-25] MEDS: potassium chloride ER 10 mEq Tablet 20 MEQ PO (08:07)
[2021-07-25] MEDS: levothyroxine 137 mcg Tablet PO (08:07)
[2021-07-25] MEDS: memantine 5 mg tablet 10 MG PO ×2 (08:07→17:06)
[2021-07-25] MEDS: guaiFENesin 600 mg Tablet PO ×2 (08:07→17:06)
[2021-07-25] MEDS: predniSONE 10 mg Tablet PO (08:07)
[2021-07-25] MEDS: rivaroxaban 10 mg Tablet 20 MG PO (08:08)
--- NOTE | 2021-07-25 08:28 | PC.NURSE ---
Dr. Alfaro notified of soft blood pressures. Orders received to give 20mg PO Furosemide instead of 40mg if patients lungs sounded like crackles. Coarse crackles auscultated t/o lungs- 20mg lasix given.
[2021-07-25] MEDS: FUROsemide 20 mg Tablet PO (08:32)
--- NOTE | 2021-07-25 16:12 | PHA.FALL ---
A Pharmacy Consult Was Conducted For Pearl Roblero Due To: Ramirez Fall Scale Risk Level: High Fall Risk On 07/25/21 08:00 And A Medication Fall Risk Score Greater Than 10. medications that have documented adverse effects related to drowsiness, etc were evaluated and listed below. Individual side effects are represented by percentage, but they could be additive when taking other medications with the same profile. The following information is supplied by [employer]. donepezil: Neurologic: Asthenia (1% to 2% ), Dizziness (2% to 8% ), Headache (3% to 4% ), Insomnia (2% to 14% ), Somnolence (1% to 2% ) duloxetine: Neurologic: Hypersomnia, Sedated (Pediatric, 9% ), Somnolence isosorbide mononitrate: Neurologic: Dizziness (Extended-release, 8% to 11% ; immediate-release, up to 4% ), Headache (Extended-release, 38% to 57% ; immediate-release, 13% to 35% ) memantine: Neurologic: Confusion (6% ), Dizziness (5% to 7% ), Headache (adults, 6% ; pediatrics, 8% ) gabapentin: Neurologic: Dizziness (Adults, 28%; adults and adolescents, 17%; pediatrics, 3% ), Somnolence (Adults, 21%; adults and adolescents, 19%; pediatrics, 8% ) temazepam: Neurologic: Somnolence (9.1% ) The Recommendations Are As Follows:
[2021-07-25] MEDS: cefTRIAXone 1,000 MG in sodium chloride 0.9% (plus) 50 ML 100 MG IV (17:06)
--- NOTE | 2021-07-25 19:14 | PC.PHAR ---
Vancomycin is dosed at 1250mg IVPB every 24 hours to produce a predicted trough level of 12.38 (population based pharmacokinetic analysis). A trough level has been ordered from the lab to be obtained before the fourth dose to confirm and adjust if needed.
--- NOTE | 2021-07-25 19:47 | PM.PN ---
Subjective Subjective: Interval history: Patient was seen and examined this morning, continues to complain of feeling tired, and missing her family. Given no improvement in sob and continued desaturation with minimal exertion.Will escalate Abxs to Vancomycin and zosyn. Medications: Reviewed: Yes Vitals/I&O/Wt Last Vital Signs Temp 98.7 F 07/25/21 15:42 Pulse 108 H 07/25/21 15:42 Resp 16 07/25/21 15:42 BP 166/75 07/25/21 15:42 Pulse Ox 94 07/25/21 15:42 07/25/21 07/25/21 07/25/21 06:59 14:59 22:59 Intake Total 240 / 240 Output Total 0 / 0 Balance 0 / 650 240 / 240 Weight last 48 hrs Weight 66.315 kg Weight 66.451 kg Physical Exam Const: COMMON NORMALS: patient oriented x3 HENMT: COMMON NORMALS: normocephalic and atraumatic HEAD & SCALP: normocephalic and atraumatic Resp: OTHER: Bilateral coarse breath sounds, bilateral crackles present in both the lungs cabello Cardio: COMMON NORMALS: regular rate, regular rhythm, S1 normal heart sound present, S2 normal heart sound present, No gallops present (Cardio), No murmurs present (Cardio), No rub (Cardio) and Peripheral pulses 2+ throughout RATE: regular rate RHYTHM: regular rhythm HEART SOUNDS: S1 normal heart sound present and S2 normal heart sound present PERIPHERAL PULSES: Peripheral pulses 2+ throughout GI: COMMON NORMALS: Normal to inspection, nondistended, normoactive bowel sounds present, Soft to palpation, non-tender, No hepatosplenomegaly present and no masses AUSCULTATION: Yes normoactive bowel sounds PALPATION: Yes Soft to palpation and Yes No hepatosplenomegaly present RECTAL EXAM: deferred Extremity: COMMON NORMALS: no clubbing, cyanosis or edema and no pedal edema Neuro: COMMON NORMALS: patient oriented x3 Data : 07/25/21 05:27 07/25/21 05:27 A&P Assessment and plan (1) Pneumonia: Patient came in with worsening shortness of breath, nonproductive dry cough, x-ray chest:New infiltrate in left lower lung field. Sputum culture: MRSA PCR:Negative Legionella antigen: Bacterial antigen: Initially on ceftriaxone and azithromycin.Given no improvement in sob as continued desaturation with minimal exertion.Will escalate Abxs to Vancomycin and zosyn. Mucinex Incentive spirometer Flutter valve Supplemental oxygen as needed Status: Acute (2) Interstitial lung disease: Continue prednisone 10 mg p.o. daily Status: Acute (3) Atrial fibrillation: Currently rate is well controlled. Telemetry Xarelto Status: Acute Qualifiers: Atrial fibrillation type: unspecified Qualified Code(s): I48.91 - Unspecified atrial fibrillation (4) Heart failure with preserved ejection fraction: Continue Lasix 40 mg I.V daily Intake output charting Daily weight K>4,MG>2 Status: Acute (5) Hypothyroidism: Levothyroxine 137 MCG PO DAILY Status: Acute Qualifiers: Hypothyroidism type: unspecified Qualified Code(s): E03.9 - Hypothyroidism, unspecified (6) Rheumatoid arthritis: Status: Acute Qualifiers: Rheumatoid arthritis location: multiple sites Rheumatoid factor presence: unspecified presence Qualified Code(s): M06.9 - Rheumatoid arthritis, unspecified (7) Hypertension: Status: Acute Qualifiers: Hypertension type: essential hypertension Qualified Code(s): I10 - Essential (primary) hypertension Additional A&P Information Recent history of COVID-19 pneumonia: Discharged on 3 L supplemental home oxygen. CODE STATUS: Full code DVT prophylaxis: Not needed as the patient is on Xarelto Disposition: Discharge to home or jail. Attestations Medical Necessity Statement*: Patient needs to be in hospital for the management of PNA Coding Level of Care Code Acute Patient Care Assistant for [facility] Fwd Diagnoses Pneumonia J18.9 Interstitial lung disease J84.9 Atrial fibrillation I48.91 Atrial fibrillation type: unspecified Heart failure with preserved ejection fraction I50.30 Hypothyroidism E03.9 Hypothyroidism type: unspecified Rheumatoid arthritis M06.9 Rheumatoid arthritis location: multiple sites Rheumatoid factor presence: unspecified presence Hypertension I10 Hypertension type: essential hypertension
[2021-07-25] MEDS: temazepam 15 mg Capsule 30 MG PO (20:12)
[2021-07-25] MEDS: piperacillin-tazobactam 3.375 GM in sodium chloride 0.9% (plus) 50 ML IV (20:12)
[2021-07-25] MEDS: FUROsemide 10 mg/mL SDV 4mL 40 MG IVP (20:39)
[2021-07-26] VITALS (12 sets, daily range): BP systolic 85–119; BP diastolic 57–73; PULSE 69–118; RESP 16–95; TEMP 36.5–38.8; O2SAT 89–95
[2021-07-26] MEDS: vancomycin 1,250 MG/250 ML PIGGYBACK 250 MG IV ×2 (00:01→23:58)
[2021-07-26] MEDS: piperacillin-tazobactam 3.375 GM in sodium chloride 0.9% (plus) 50 ML IV ×3 (02:27→19:39)
[2021-07-26] MEDS: ipratropium-albuterol 3 mL Neb INHALATION ×4 (02:52→20:35)
[2021-07-26 06:26] LABS: Basophils % 0.5 %; Eosinophils % 0.7 %; Hemoglobin 12.2 g/dL (11.5-15.3); Lymphocytes # 1.4 10^3/uL (0.8-4.8); Lymphocytes % 24.7 %; Mean Corpuscular HGB Conc 31.3 g/dL (30.0-36.0); Mean Corpuscular Hemoglobin 30.5 pg (28.0-34.0); Mean Corpuscular Volume 97.5 fl (81-99); Mean Platelet Volume 9.4 fL (7.4-10.4); Monocytes # 0.4 10^3/uL (0.2-0.9); Monocytes % 6.4 %; Neutrophils # 3.44 10^3/uL (1.8-7.7); Nucleated Red Blood Cells % 0 %; Platelet Count 434 10^3/cmm (130-400); Red Cell Distribution Width 15.9 % (12.1-15.1); White Blood Count 5.8 10^3/uL (4.0-10.0)
[2021-07-26 06:53] LABS: Alanine Aminotransferase 26 U/L (0-33); Albumin Level 2.8 g/dL (3.5-5.2); Alkaline Phosphatase 85 IU/L (35-105); Anion Gap 15.7 (5-19); Aspartate Amino Transferase 41 U/L (0-32); Blood Urea Nitrogen 13 mg/dL (8-23); Calcium 7.9 mg/dL (8.5-10.5); Carbon Dioxide 30 mmol/L (22-29); Chloride 96 mmol/L (98-107); Globulin 2.8 g/dL (1.3-4.6); Glucose 104 mg/dL (65-115); Osmolality Calculated 286 mOsm/kg (285-295); Potassium 3.7 mmol/L (3.5-5.1); Sodium 138 mmol/L (136-145); Total Bilirubin 0.3 mg/dL (0.15-1.2); Total Protein 5.6 g/dL (6.6-8.7)
--- NOTE | 2021-07-26 07:00 | XRR_ITS ---
PROCEDURE INFORMATION: Exam: XR Chest Exam date and time: 07/26/2021 7:00 AM Age: 81 years old Clinical indication: Condition or disease; Lung condition and disease; Pneumonia; Lobar; Additional info: Pna TECHNIQUE: Imaging protocol: XR of the chest. Views: 1 view. COMPARISON: CR XR chest 1V portable [id number] 07/23/2021 11:13 AM FINDINGS: Lungs: Increased [id number] left basilar pneumonia. Slight increased interstitial opacities in the perihilar areas suggesting interstitial pneumonitis versus interstitial pulmonary edema. Pleural spaces: Unremarkable. No pleural effusion. No pneumothorax. Heart/Mediastinum: Unremarkable. No cardiomegaly. Bones/joints: Levoscoliosis. Other findings: Stable postoperative changes over the right shoulder. XR/XR chest 1V portable [id number] IMPRESSION: 1. Increased [id number] left basilar pneumonia. 2. Slight increased interstitial opacities in the perihilar areas suggesting interstitial pneumonitis versus interstitial pulmonary edema. Radiation Dose CTDIVOL = (mGy): DLP = (mGy-cm)
[2021-07-26 07:38] LABS: Neutrophils % 67.7 %; Slide Review Slide Review Perform
[2021-07-26] MEDS: isosorbide mononitrate ER 30 mg Tablet PO (09:19)
[2021-07-26] MEDS: levothyroxine 137 mcg Tablet PO (09:19)
[2021-07-26] MEDS: gabapentin 100 mg Capsule 200 MG PO ×4 (09:19→21:24)
[2021-07-26] MEDS: memantine 5 mg tablet 10 MG PO ×2 (09:19→17:24)
[2021-07-26] MEDS: pantoprazole DR 40 mg Tablet PO (09:19)
[2021-07-26] MEDS: duloxetine 60 mg Capsule PO (09:19)
[2021-07-26] MEDS: predniSONE 10 mg Tablet PO (09:20)
[2021-07-26] MEDS: donepezil 5 MG Tablet 10 MG PO (09:20)
[2021-07-26] MEDS: rivaroxaban 10 mg Tablet 20 MG PO (09:20)
[2021-07-26] MEDS: guaiFENesin 600 mg Tablet PO ×2 (09:20→17:24)
[2021-07-26] MEDS: potassium chloride ER 10 mEq Tablet 20 MEQ PO (09:20)
[2021-07-26] MEDS: acetaminophen 325 mg Tablet 650 MG PO (12:34)
[2021-07-26] MEDS: FUROsemide 10 mg/mL SDV 2mL 20 MG IVP (13:52)
--- NOTE | 2021-07-26 14:52 | PC.SOCIAL ---
IM follow up explained and copy provided. NO questions voiced.
--- NOTE | 2021-07-26 17:41 | PM.PN ---
Subjective Subjective: Interval history: Patient was seen and examined this morning,continue to have significant SOB as well as cough.Also had fever today with noted Tmax of : 101.8. Good Urine output with overnight lasix. Medications: Reviewed: Yes Vitals/I&O/Wt Last Vital Signs Temp 97.9 F 07/26/21 15:49 Pulse 95 07/26/21 15:49 Resp 17 07/26/21 15:49 BP 96/62 07/26/21 17:33 Pulse Ox 89 L 07/26/21 15:49 07/26/21 07/26/21 07/26/21 06:59 14:59 22:59 Intake Total 400 / 640 240 / 240 50 / 290 Output Total 350 / 2350 500 / 500 Balance 50 / -1710 240 / 240 -450 / -210 Weight last 48 hrs Weight 65.091 kg Weight 66.315 kg Physical Exam Const: COMMON NORMALS: patient oriented x3 HENMT: COMMON NORMALS: normocephalic and atraumatic HEAD & SCALP: normocephalic and atraumatic Resp: OTHER: Bilateral coarse breath sounds, bilateral crackles present in both the lungs cabello Cardio: COMMON NORMALS: regular rate, regular rhythm, S1 normal heart sound present, S2 normal heart sound present, No gallops present (Cardio), No murmurs present (Cardio), No rub (Cardio) and Peripheral pulses 2+ throughout RATE: regular rate RHYTHM: regular rhythm HEART SOUNDS: S1 normal heart sound present and S2 normal heart sound present PERIPHERAL PULSES: Peripheral pulses 2+ throughout GI: COMMON NORMALS: Normal to inspection, nondistended, normoactive bowel sounds present, Soft to palpation, non-tender, No hepatosplenomegaly present and no masses AUSCULTATION: Yes normoactive bowel sounds PALPATION: Yes Soft to palpation and Yes No hepatosplenomegaly present RECTAL EXAM: deferred Extremity: COMMON NORMALS: no clubbing, cyanosis or edema and no pedal edema Neuro: COMMON NORMALS: patient oriented x3 Urinary Catheter Management^: Barnes: Cath Placed During This Visit: yes Reason for Continuing Indwelling Catheter: Accurate Measurement of Urinary Output in Critically Ill Patients Urinary Catheter Date of Insertion: 07/25/21 Urinary Catheter Time of Insertion: 20:45 Data : 07/26/21 05:39 07/26/21 05:39 Micro: Microbiology 07/26/21 05:41 Blood Culture - Preliminary Blood SPECIMEN COLLECTED 07/26/21 05:39 Blood Culture - Preliminary Blood SPECIMEN COLLECTED A&P Assessment and plan (1) Pneumonia: Patient came in with worsening shortness of breath, nonproductive dry cough, was recently discharged after being managed for Covid. x-ray chest: Worsening new infiltrate in left lower lung field. Sputum culture: Blood culture: MRSA PCR:Negative Legionella antigen: Bacterial antigen: Initially on ceftriaxone and azithromycin.Given no improvement in sob and continued desaturation with minimal exertion.Abxs escalated to Vancomycin and zosyn. Dexamethasone 6 mg IV daily started on 07/26.Prednisone 10 mg p.o. daily was discontinued. Lasix 20 mg i.v BID. Mucinex Incentive spirometer Flutter valve Supplemental oxygen as needed Status: Acute (2) Interstitial lung disease: Status: Acute (3) Atrial fibrillation: Currently rate is well controlled. Telemetry Xarelto Status: Acute Qualifiers: Atrial fibrillation type: unspecified Qualified Code(s): I48.91 - Unspecified atrial fibrillation (4) Heart failure with preserved ejection fraction: Pro BNP: 396 Continue Lasix 20 mg I.V BID Intake output charting Daily weight K>4,MG>2 Status: Acute (5) Hypothyroidism: Levothyroxine 137 MCG PO DAILY Status: Acute Qualifiers: Hypothyroidism type: unspecified Qualified Code(s): E03.9 - Hypothyroidism, unspecified (6) Rheumatoid arthritis: Status: Acute Qualifiers: Rheumatoid arthritis location: multiple sites Rheumatoid factor presence: unspecified presence Qualified Code(s): M06.9 - Rheumatoid arthritis, unspecified (7) Hypertension: Status: Acute Qualifiers: Hypertension type: essential hypertension Qualified Code(s): I10 - Essential (primary) hypertension Additional A&P Information Recent history of COVID-19 pneumonia: Discharged on 3 L supplemental home oxygen. CODE STATUS: Full code DVT prophylaxis: Not needed as the patient is on Xarelto Disposition: Discharge to home or custodial. 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
[2021-07-26] MEDS: dexamethasone 10 mg/mL INJ 6 MG IVP (18:11)
--- NOTE | 2021-07-26 21:16 | PM.EVENT ---
Event Note Event Note: Called with patient blood pressures around 90 systolic. Has lasix IV 20 mg due. Reviewed VS trend and noted BP has decreased though stay. Negative 680ml whiel here. Given drop in pressures, will hold IV lasix for now with plan for attending to re-evaluate continued use in the morning. Last echo with grade 1 diastolic dysfunction and EF 57%.
[2021-07-26] MEDS: temazepam 15 mg Capsule 30 MG PO (21:25)
[2021-07-27] VITALS (13 sets, daily range): BP systolic 87–121; BP diastolic 53–70; PULSE 67–110; RESP 16–20; TEMP 36.4–36.9; O2SAT 87–97
[2021-07-27] MEDS: ipratropium-albuterol 3 mL Neb INHALATION ×3 (02:45→21:00)
[2021-07-27] MEDS: piperacillin-tazobactam 3.375 GM in sodium chloride 0.9% (plus) 50 ML IV ×3 (03:42→20:26)
[2021-07-27 06:37] LABS: Basophils % 0.6 %; Hematocrit 34.4 % (37.0-47.0); Hemoglobin 10.3 g/dL (11.5-15.3); Lymphocytes # 1.3 10^3/uL (0.8-4.8); Lymphocytes % 27.3 %; Mean Corpuscular HGB Conc 29.9 g/dL (30.0-36.0); Mean Corpuscular Hemoglobin 29.8 pg (28.0-34.0); Mean Corpuscular Volume 99.4 fl (81-99); Mean Platelet Volume 9.4 fL (7.4-10.4); Monocytes # 0.2 10^3/uL (0.2-0.9); Monocytes % 4.3 %; Neutrophils # 3.03 10^3/uL (1.8-7.7); Nucleated Red Blood Cells % 0 %; Platelet Count 378 10^3/cmm (130-400); Red Blood Count 3.46 10^6/uL (4.1-5.3); Red Cell Distribution Width 15.7 % (12.1-15.1); White Blood Count 4.7 10^3/uL (4.0-10.0)
[2021-07-27 06:51] LABS: Anion Gap 14.4 (5-19); Blood Urea Nitrogen 16 mg/dL (8-23); Calcium 8.1 mg/dL (8.5-10.5); Carbon Dioxide 29 mmol/L (22-29); Chloride 99 mmol/L (98-107); Glucose 152 mg/dL (65-115); Osmolality Calculated 290 mOsm/kg (285-295); Potassium 4.4 mmol/L (3.5-5.1); Sodium 138 mmol/L (136-145)
[2021-07-27] MEDS: memantine 5 mg tablet 10 MG PO ×2 (08:22→18:08)
[2021-07-27] MEDS: donepezil 5 MG Tablet 10 MG PO (08:22)
[2021-07-27] MEDS: gabapentin 100 mg Capsule 200 MG PO ×4 (08:22→20:27)
[2021-07-27] MEDS: rivaroxaban 10 mg Tablet 20 MG PO (08:22)
[2021-07-27] MEDS: levothyroxine 137 mcg Tablet PO (08:23)
[2021-07-27] MEDS: pantoprazole DR 40 mg Tablet PO (08:23)
[2021-07-27] MEDS: isosorbide mononitrate ER 30 mg Tablet PO (08:23)
[2021-07-27] MEDS: guaiFENesin 600 mg Tablet PO ×2 (08:23→18:07)
[2021-07-27] MEDS: duloxetine 60 mg Capsule PO (08:23)
--- NOTE | 2021-07-27 11:39 | PC.NURSE ---
nurse notified of low BP
[2021-07-27] MEDS: midodrine 5 mg TABLET 10 MG PO ×3 (12:48→20:27)
[2021-07-27] MEDS: lactated ringers 500 ML 999 ML IV (13:28)
[2021-07-27 15:22] LABS: Thyroid Stimulating Hormone 0.35 uIU/mL (0.27-4.20)
[2021-07-27] MEDS: fludrocortisone 0.1 mg Tablet PO (15:54)
[2021-07-27] MEDS: hydrocortisone 100 mg/2 mL SDV 50 MG IVP (16:03)
--- NOTE | 2021-07-27 16:55 | PM.PN ---
Subjective Subjective: Interval history: Patient was seen this morning, she is alert to person, not to place, not to time, follows commands, she continues to have a poor appetite, complains of shortness of breath, is on 5 to 6 L nasal cannula, blood pressures are also soft, no nausea, no vomiting, overnight her blood pressures are soft her Lasix was held Patient was not reexamined this afternoon, she had sat up in the chair and now is in bed, she complains of weakness, she did not eat much of her lunch, did eat some of her peach cobbler, family is at bedside, her son and are at bedside, they want to continue medical interventions, want to see if she could be medically stable enough to discharge to a group home, Vitals/I&O/Wt Last Vital Signs Temp 98.4 F 07/27/21 15:54 Pulse 97 07/27/21 15:54 Resp 16 07/27/21 15:54 BP 114/65 07/27/21 15:54 Pulse Ox 92 07/27/21 15:54 07/27/21 07/27/21 07/27/21 06:59 14:59 22:59 Intake Total 300 / 590 850 / 850 290 / 1140 Output Total 150 / 1000 400 / 400 Balance 150 / -410 850 / 850 -110 / 740 Weight last 48 hrs Weight 63.758 kg Weight 65.091 kg Physical Exam Const: COMMON NORMALS: no acute distress ORIENTATION/CONSCIOUSNESS: Yes awake, Yes oriented to person and Yes oriented to place; not oriented to time Resp: COMMON NORMALS: normal respiratory effort, No retractions and No use of accessory muscles AUSCULTATION: crackles Cardio: COMMON NORMALS: regular rate, regular rhythm, S1 normal heart sound present and S2 normal heart sound present RATE: regular rate RHYTHM: regular rhythm HEART SOUNDS: S1 normal heart sound present and S2 normal heart sound present GI: COMMON NORMALS: Normal to inspection, nondistended, normoactive bowel sounds present and Soft to palpation PALPATION: Yes Soft to palpation Extremity: COMMON NORMALS: no pedal edema Neuro: SENSORIUM/ORIENTATION: Yes oriented to person, Yes oriented to place and No oriented to time Psych: COMMON NORMALS: mental status grossly normal Urinary Catheter Management^: Barnes: Cath Placed During This Visit: yes Reason for Continuing Indwelling Catheter: Accurate Measurement of Urinary Output in Critically Ill Patients Urinary Catheter Date of Insertion: 07/25/21 Urinary Catheter Time of Insertion: 20:45 Data : 07/27/21 05:41 07/27/21 05:41 Micro: Microbiology 07/26/21 05:41 Blood Culture - Preliminary Blood NEGATIVE TO DATE 07/26/21 05:39 Blood Culture - Preliminary Blood NEGATIVE TO DATE A&P Assessment and plan (1) Pneumonia: Acute hypoxic respiratory failure secondary to pneumonia, COVID-19 pneumonia With a history of RA interstitial lung disease Patient came in with worsening shortness of breath, nonproductive dry cough, was recently discharged after being managed for Covid. x-ray chest: Worsening new infiltrate in left lower lung field. Sputum culture: Pending Blood culture: So far unremarkable MRSA PCR:Negative Legionella antigen: Pending Bacterial antigen: Pending Initially on ceftriaxone and azithromycin.Given no improvement in sob and continued desaturation with minimal exertion.Abxs escalated to Vancomycin and zosyn. Dexamethasone 6 mg IV daily has been discontinued.Prednisone 10 mg p.o. daily was discontinued. As she is on chronic steroids, possible adrenal insufficiency, switch to hydrocortisone 50 every 12 hours with fludrocortisone 0.1 mg daily Add midodrine 10 every 8 hours Lasix on hold Mucinex Incentive spirometer Flutter valve Supplemental oxygen as needed PT OT Full code Lovenox for DVT prophylaxis Will order bilateral extremity ultrasound, will consider CT angio is on Xarelto Family would like us to continue medical interventions, plan on discharge to group home Status: Acute (2) Interstitial lung disease: Status: Acute (3) Atrial fibrillation: Currently rate is well controlled. Telemetry Xarelto Status: Acute Qualifiers: Atrial fibrillation type: unspecified Qualified Code(s): I48.91 - Unspecified atrial fibrillation (4) Heart failure with preserved ejection fraction: Pro BNP: 396 Lasix on hold Intake output charting Daily weight K>4,MG>2 Status: Acute (5) Hypothyroidism: Levothyroxine 137 MCG PO DAILY Status: Acute Qualifiers: Hypothyroidism type: unspecified Qualified Code(s): E03.9 - Hypothyroidism, unspecified (6) Rheumatoid arthritis: Status: Acute Qualifiers: Rheumatoid arthritis location: multiple sites Rheumatoid factor presence: unspecified presence Qualified Code(s): M06.9 - Rheumatoid arthritis, unspecified (7) Hypertension: Status: Acute Qualifiers: Hypertension type: essential hypertension Qualified Code(s): I10 - Essential (primary) hypertension Additional A&P Information Recent history of COVID-19 pneumonia: Discharged on 3 L supplemental home oxygen. CODE STATUS: Full code DVT prophylaxis: Not needed as the patient is on Xarelto Disposition: Discharge to home or group home. 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
--- NOTE | 2021-07-27 20:16 | PC.NURSE ---
i reported high pulse 110 and low 02 89 to nurse
[2021-07-27] MEDS: temazepam 15 mg Capsule 30 MG PO (20:27)
[2021-07-27] MEDS: budesonide 0.5 mg/2 mL Neb INHALATION (21:00)
--- NOTE | 2021-07-27 21:15 | PC.NURSE ---
RT in room to eval and treat pt. RT placed pt on 10L high flow NC at this time. O2 sat ranging from 86-88.
[2021-07-28] VITALS (16 sets, daily range): BP systolic 98–148; BP diastolic 51–77; PULSE 72–90; RESP 16–32; TEMP 36.5–37.6; O2SAT 13–92
[2021-07-28] MEDS: vancomycin 1,250 MG/250 ML PIGGYBACK 250 MG IV ×2 (00:31→22:36)
--- NOTE | 2021-07-28 02:15 | PC.NURSE ---
RT called to room to place pt on CPAP as ordered by Mine. Pt placed on CPAP by RT @ 60%. pt RR high ranging 30-33, but pt otherwise tolerating well, not fight with mask. RT will evaluated within the hour to see if RR will decrease.
[2021-07-28] MEDS: hydrocortisone 100 mg/2 mL SDV 50 MG IVP ×2 (02:22→15:02)
--- NOTE | 2021-07-28 03:09 | PC.NURSE ---
pt tolerating CPAP well at this time RR decreased, ranging 22-25.
[2021-07-28] MEDS: ipratropium-albuterol 3 mL Neb INHALATION ×4 (03:52→20:01)
[2021-07-28] MEDS: piperacillin-tazobactam 3.375 GM in sodium chloride 0.9% (plus) 50 ML IV ×2 (04:06→15:02)
--- NOTE | 2021-07-28 05:13 | PC.NURSE ---
i reported low o2 88 to nurse
--- NOTE | 2021-07-28 05:28 | PC.NURSE ---
pt continues on CPAP @ 60%. RR 23, O2 saturation 93%. pt tolerating well.
[2021-07-28 06:33] LABS: Basophils % 0.3 %; Hematocrit 31.6 % (37.0-47.0); Hemoglobin 9.9 g/dL (11.5-15.3); Lymphocytes % 15.7 %; Mean Corpuscular HGB Conc 31.3 g/dL (30.0-36.0); Mean Corpuscular Hemoglobin 30.3 pg (28.0-34.0); Mean Corpuscular Volume 96.6 fl (81-99); Monocytes # 0.4 10^3/uL (0.2-0.9); Monocytes % 5.8 %; Neutrophils # 4.77 10^3/uL (1.8-7.7); Neutrophils % 74.3 %; Nucleated Red Blood Cells % 0.3 %; Platelet Count 375 10^3/cmm (130-400); Red Blood Count 3.27 10^6/uL (4.1-5.3); Red Cell Distribution Width 15.7 % (12.1-15.1); White Blood Count 6.4 10^3/uL (4.0-10.0)
[2021-07-28 06:54] LABS: Lactate (Lactic Acid level) 0.9 mmol/L (0.5-2.2)
[2021-07-28 07:08] LABS: NT Pro B Type Natriuretic Pept 6225 pg/mL (0-450)
[2021-07-28 07:20] LABS: Anion Gap 13.7 (5-19); Blood Urea Nitrogen 17 mg/dL (8-23); C Reactive Protein 92.8 mg/L (0.0-4.9); Calcium 8.2 mg/dL (8.5-10.5); Carbon Dioxide 27 mmol/L (22-29); Chloride 99 mmol/L (98-107); Glucose 196 mg/dL (65-115); Magnesium 1.7 mg/dL (1.7-2.3); Osmolality Calculated 289 mOsm/kg (285-295); Phosphorus 3.1 mg/dL (2.5-4.5); Potassium 3.7 mmol/L (3.5-5.1); Sodium 136 mmol/L (136-145)
[2021-07-28 07:56] LABS: Slide Review Slide Review Perform
[2021-07-28] MEDS: budesonide 0.5 mg/2 mL Neb INHALATION ×2 (08:28→20:01)
[2021-07-28] MEDS: memantine 5 mg tablet 10 MG PO ×2 (09:13→17:31)
[2021-07-28] MEDS: duloxetine 60 mg Capsule PO (09:13)
[2021-07-28] MEDS: pantoprazole DR 40 mg Tablet PO (09:13)
[2021-07-28] MEDS: guaiFENesin 600 mg Tablet PO ×2 (09:14→17:31)
[2021-07-28] MEDS: midodrine 5 mg TABLET 10 MG PO ×3 (09:14→20:59)
[2021-07-28] MEDS: levothyroxine 137 mcg Tablet PO (09:14)
[2021-07-28] MEDS: donepezil 5 MG Tablet 10 MG PO (09:14)
[2021-07-28] MEDS: gabapentin 100 mg Capsule 200 MG PO ×4 (09:14→20:59)
[2021-07-28] MEDS: fludrocortisone 0.1 mg Tablet PO (09:14)
[2021-07-28] MEDS: rivaroxaban 10 mg Tablet 20 MG PO (09:14)
--- NOTE | 2021-07-28 10:19 | CT_ITS ---
WS: [id number] CTA OF THE CHEST WITH PULMONARY EMBOLISM PROTOCOL TECHNIQUE: High-resolution contrast enhanced CTA of the chest with coronal and sagittal reformatted i benitas with pulmonary embolism protocol. MIP images are also reviewed. CLINICAL INFORMATION: hypoxia COMPARISON: CTA July 17, 2021 DLP: 540.[address] scans at [facility] use at least one of these dose optimization techniques: automated e xposure control; mA and/or kV adjustment per patient size (includes targeted exams where dose is matc hed to clinical indication); or iterative reconstruction. FINDINGS: Proximal main pulmonary arteries are normal. Multiple filling defects are seen within the right middl e lobe pulmonary artery consistent with acute pulmonary embolus. No other visualized filling defects. . Cardiomegaly. Normal caliber thoracic aorta. Diffuse bilateral groundglass infiltrates throughout both lungs have developed since July 17, 2021 . Airspace infiltrates demonstrate some partial consolidation in the lung bases and perihilar regions . Trace bilateral pleural fluid. Recommend correlation for pneumonia. Shallow inspiration compared to previous. A few calcified granulomas. Cholecystectomy clips. Adrenal glands are normal. Thoracolumba r curve. Moderate thoracic kyphosis. CT/CT angio chest PE protcl [id number] IMPRESSION: 1. Filling defects in the right middle lobe pulmonary artery consistent with a cute pulmonary embolus. 2. Shallow inspiration today with diffuse bilateral groundglass airspace infil trates. This is new from previous. Recommend correlation for COVID 19 pneumonia 3. Partial developing consolidation in the perihilar regions and both lung bas es. 4. Trace bilateral pleural fluid. 5. No other significant changes from previous. Notified Huseyin Blount MD at 07/28/2021 2:11 PM.
[2021-07-28] MEDS: FUROsemide 10 mg/mL SDV 4mL 40 MG IVP (11:31)
--- NOTE | 2021-07-28 12:57 | PC.SOCIAL ---
IMM Update pg 2 of IMM updated and reviewed w/ patient. Copy provided.
[2021-07-28] MEDS: iohexol 350 mg/mL 100 mL Btl IV (13:57)
--- NOTE | 2021-07-28 16:26 | P.PN_ITS ---
Subjective Subjective: Interval history: Patient was seen this morning, she continues to have a poor appetite, is alert to person, to place, not to time, does follow commands, continues to complain of weakness, shortness of breath, afebrile overnight, her oxygen requirements have increased to 12 L Patient was reexamined this afternoon, her family is at bedside including her son, , [id number], also her daughter over the phone I advised patient's family that the CT angiogram performed this afternoon shows right middle lobe pulmonary embolism, unfortunate failure of anticoagulation on Xarelto, worsening COVID-[address] imaging, and now given her increased oxygen requirements concerning for acute respiratory distress syndrome, she continues to have a poor appetite, fatigue, weakness Patient was reexamined early in the evening, she is saturating the low 80s on 15 L, she was put on heated high flow, family at bedside, family and patient had a discussion, they would like to change her CODE STATUS to DNR/DNI I advised the patient status is stable currently, however her oxygen requirements are increasing, will continue to monitor closely Vitals/I&O/Wt Last Vital Signs Temp 98.5 F 07/28/21 12:00 Pulse 80 07/28/21 14:19 Resp 18 07/28/21 14:09 BP 129/65 07/28/21 12:00 Pulse Ox 86 L 07/28/21 14:09 07/28/21 07/28/21 07/28/21 06:59 14:59 22:59 Intake Total 300 / 1560 790 / 790 Output Total 400 / 800 1350 / 1350 Balance -100 / 760 790 / 790 -1350 / -560 Weight last 48 hrs Weight 66.281 kg Weight 63.758 kg Physical Exam Const: COMMON NORMALS: no acute distress ORIENTATION/CONSCIOUSNESS: Yes awake, Yes oriented to person and Yes oriented to place; not oriented to time Resp: COMMON NORMALS: normal respiratory effort, No retractions, No use of accessory muscles and clear to auscultation bilaterally AUSCULTATION: clear to auscultation bilaterally Cardio: COMMON NORMALS: regular rate, regular rhythm, S1 normal heart sound present and S2 normal heart sound present RATE: regular rate RHYTHM: regular rhythm HEART SOUNDS: S1 normal heart sound present and S2 normal heart sound present GI: COMMON NORMALS: Normal to inspection, nondistended, normoactive bowel sounds present, Soft to palpation and non-tender PALPATION: Yes Soft to palpation Extremity: COMMON NORMALS: no pedal edema Neuro: SENSORIUM/ORIENTATION: Yes oriented to person, Yes oriented to place and No oriented to time Psych: COMMON NORMALS: mental status grossly normal Urinary Catheter Management^: Barnes: Cath Placed During This Visit: yes Reason for Continuing Indwelling Catheter: Other Urinary Catheter Date of Insertion: 07/25/21 Urinary Catheter Time of Insertion: 20:45 Data : 07/28/21 06:20 07/28/21 06:20 A&P Assessment and plan (1) Pneumonia: Acute hypoxic respiratory failure secondary to pneumonia, COVID-19 pneumonia, with evidence of acute respiratory distress syndrome, now with right middle lobe pulmonary embolism failure of anticoagulation on Xarelto With a history of RA interstitial lung disease Patient came in with worsening shortness of breath, nonproductive dry cough, was recently discharged after being managed for Covid, Decadron, remdesivir, did not receive Actemra or baricitinib given immunocompromise state x-ray chest: Worsening new infiltrate in left lower lung field. CT angiogram of the chest shows 1. Filling defects in the right middle lobe pulmonary artery consistent with acute pulmonary embolus. 2. Shallow inspiration today with diffuse bilateral groundglass airspace infiltrates. This is new from previous. Recommend correlation for COVID 19 pneumonia 3. Partial developing consolidation in the perihilar regions and both lung bases. 4. Trace bilateral pleural fluid. Sputum culture: Pending Blood culture: So far unremarkable MRSA PCR:Negative Legionella antigen: Pending Bacterial antigen: Pending Plan Continue heated high flow, BiPAP as needed Continue vancomycin and Zosyn, we will add Levaquin CT angiogram does show lobar consolidation hydrocortisone 50 every 12 hours with fludrocortisone 0.1 mg daily Finished remdesivir treatment during last hospitalization, not a candidate for Actemra or baricitinib given concerns for pneumonia lobar consolidation Add midodrine 10 every 8 hours One dose of 40 mg Lasix with albumin Failure of anticoagulation on Xarelto, developed pulmonary emboli on anticoagulation, switch to therapeutic Lovenox Cardiac echo, troponin series ordered Mucinex Incentive spirometer Flutter valve Supplemental oxygen as needed PT OT Full code Lovenox for DVT prophylaxis Family patient have changed CODE STATUS to DNR/DNI Family does not want aggressive interventions, Morphine and Ativan for air hunger if required Status: Acute (2) Acute respiratory failure with hypoxia: Status: Acute (3) Interstitial lung disease: Status: Acute (4) Atrial fibrillation: Currently rate is well controlled. Telemetry Xarelto Status: Acute Qualifiers: Atrial fibrillation type: unspecified Qualified Code(s): I48.91 - Unspecified atrial fibrillation (5) Heart failure with preserved ejection fraction: Pro BNP: 396 Lasix on hold Intake output charting Daily weight K>4,MG>2 Status: Acute (6) Hypothyroidism: Levothyroxine 137 MCG PO DAILY Status: Acute Qualifiers: Hypothyroidism type: unspecified Qualified Code(s): E03.9 - Hypothy roidism, unspecified (7) Rheumatoid arthritis: Status: Acute Qualifiers: Rheumatoid arthritis location: multiple sites Rheumatoid factor presence: unspecified presence Qualified Code(s): M06.9 - Rheumatoid arthritis, unspecified (8) Hypertension: Status: Acute Qualifiers: Hypertension type: essential hypertension Qualified Code(s): I10 - Essential (primary) hypertension (9) Acute respiratory distress syndrome: Status: Acute Additional A&P Information Recent history of COVID-19 pneumonia: Discharged on 3 L supplemental home oxygen. CODE STATUS: Full code DVT prophylaxis: Not needed as the patient is on Xarelto Disposition: Discharge to home or [place] [facility]. 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
--- NOTE | 2021-07-28 17:01 | USCV_ITS ---
Pearl Roblero Age: 81 Gender: F : 1940 Exam Date: 07/28/2021 06:53 Ordering Phys: Huseyin Blount MD Technologist: Meagan June [place] [facility] [place]: [place] HISTORY: Lower extremity swelling. PROCEDURES: Venous duplex imaging was performed in bilateral lower extremities. The following venous structures were evaluated: common femoral vein, profunda vein, proximal portion of the greater saphenous vein, superficial femoral vein, and the popliteal vein. In addition, the posterior tibial and peroneal trunk were evaluated. FINDINGS: Normal 2-D Doppler and augmentation and compressibility throughout the lower extremity venous structures. Additional imaging through the proximal calf veins also reveals no thrombus. Limited evaluation of the greater saphenous vein is patent with no thrombus.. CONCLUSIONS No evidence of right lower extremity DVT. No evidence of left lower extremity DVT. Rory Houser MD (Electronically Signed) Final Date: 28 July 2021 10:08 S
[2021-07-28 17:42] LABS: Troponin(5th) Baseline 65 ng/L (0-10)
[2021-07-28] MEDS: enoxaparin 80 mg/0.8 mL Syringe 70 MG SUBCUT (20:06)
[2021-07-28] MEDS: levofloxacin-dextrose 5 % 750 MG/150 ML PREMIX 100 MG IV (20:07)
[2021-07-28 20:28] LABS: Troponin 5 2HR 62.21 ng/L (0-10)
[2021-07-28 20:42] LABS: Troponin 5 2HR Delta -2.79 ABS# (0-10)
[2021-07-28] MEDS: temazepam 15 mg Capsule 30 MG PO (20:59)
[2021-07-28 23:09] LABS: Troponin 5 6HR 74.04 ng/L (0-10); Troponin 5 6HR Delta 9.04 ng/L (0-12)
[2021-07-29] VITALS (12 sets, daily range): BP systolic 109–136; BP diastolic 56–73; PULSE 62–86; RESP 16–22; TEMP 36.6–36.9; O2SAT 68–87
[2021-07-29] MEDS: piperacillin-tazobactam 3.375 GM in sodium chloride 0.9% (plus) 50 ML IV ×3 (00:09→14:56)
[2021-07-29] MEDS: hydrocortisone 100 mg/2 mL SDV 50 MG IVP ×2 (02:36→14:55)
[2021-07-29] MEDS: ipratropium-albuterol 3 mL Neb INHALATION ×3 (02:59→14:33)
[2021-07-29 05:40] LABS: Basophils % 0.3 %; Hematocrit 31.7 % (37.0-47.0); Hemoglobin 9.7 g/dL (11.5-15.3); Lymphocytes # 1.1 10^3/uL (0.8-4.8); Lymphocytes % 16.8 %; Mean Corpuscular HGB Conc 30.6 g/dL (30.0-36.0); Mean Corpuscular Hemoglobin 29.5 pg (28.0-34.0); Mean Corpuscular Volume 96.4 fl (81-99); Mean Platelet Volume 9.1 fL (7.4-10.4); Monocytes # 0.3 10^3/uL (0.2-0.9); Neutrophils # 4.81 10^3/uL (1.8-7.7); Neutrophils % 75.7 %; Nucleated Red Blood Cells % 0.3 %; Platelet Count 373 10^3/cmm (130-400); Red Blood Count 3.29 10^6/uL (4.1-5.3); Red Cell Distribution Width 15.5 % (12.1-15.1); White Blood Count 6.4 10^3/uL (4.0-10.0)
[2021-07-29 06:00] LABS: Lactate (Lactic Acid level) 1.1 mmol/L (0.5-2.2)
[2021-07-29 06:14] LABS: NT Pro B Type Natriuretic Pept 7640 pg/mL (0-450); Procalcitonin 0.15 ng/mL (0-0.5)
[2021-07-29 06:27] LABS: Blood Urea Nitrogen 14 mg/dL (8-23); C Reactive Protein 110.7 mg/L (0.0-4.9); Calcium 8.7 mg/dL (8.5-10.5); Chloride 96 mmol/L (98-107); Glucose 111 mg/dL (65-115); Magnesium 1.8 mg/dL (1.7-2.3); Osmolality Calculated 293 mOsm/kg (285-295); Phosphorus 2.7 mg/dL (2.5-4.5); Sodium 141 mmol/L (136-145)
[2021-07-29 06:30] LABS: Potassium 2.9 mmol/L (3.5-5.1)
[2021-07-29] MEDS: potassium chloride ER 20 mEq Tablet 80 MEQ PO (06:42)
[2021-07-29] MEDS: budesonide 0.5 mg/2 mL Neb INHALATION (08:06)
[2021-07-29] MEDS: memantine 5 mg tablet 10 MG PO (09:19)
[2021-07-29] MEDS: duloxetine 60 mg Capsule PO (09:19)
[2021-07-29] MEDS: midodrine 5 mg TABLET 10 MG PO (09:20)
[2021-07-29] MEDS: donepezil 5 MG Tablet 10 MG PO (09:21)
[2021-07-29] MEDS: gabapentin 100 mg Capsule 200 MG PO (09:22)
[2021-07-29] MEDS: pantoprazole DR 40 mg Tablet PO (09:24)
[2021-07-29] MEDS: guaiFENesin 600 mg Tablet PO (09:25)
[2021-07-29] MEDS: levothyroxine 137 mcg Tablet PO (09:26)
[2021-07-29] MEDS: enoxaparin 80 mg/0.8 mL Syringe 70 MG SUBCUT (09:26)
[2021-07-29] MEDS: morphine 4 mg/mL SDV 1 mL 1 MG IVP ×2 (10:18→15:30)
[2021-07-29] MEDS: FUROsemide 10 mg/mL SDV 4mL 40 MG IVP ×2 (11:22→15:39)
--- NOTE | 2021-07-29 15:55 | PM.PN ---
Subjective Subjective: Interval history: Patient was assessed multiple times throughout the day, this morning she tells me that she had has not had much sleep overnight, feels short of breath, weak fatigued, tired, no nausea, vomiting, no chest pain, to person, to place, not to time, does follow commands Patient was reassessed this afternoon, as she has had episodes of tachypnea, saturating in the low 70s on 45 L 100%, family at bedside, patient is reporting some difficulty breathing, no nausea, no vomiting, no chest pain, I advised patient and family that she is going through severe acute respiratory distress syndrome, but I think that the likelihood of her having a meaningful recovery is fairly unlikely, she does not want intubation, he does not want aggressive interventions, she just wants to be comfortable, family wants her to be comfortable, did not want aggressive interventions. I advised patient that we have done the best we can for medical interventions, beyond aggressive interventions, is not much else I could do, she wants us to do the best we can but above all she wants to remain comfortable. Plan for now is to continue medical interventions, do semicomfort care, Ativan and morphine for air hunger if she continues to clinically deteriorate or starts to suffer will proceed with full comfort care family in agreement, she has the rest of her family arriving tonight she was hoping she could see them Vitals/I&O/Wt Last Vital Signs Temp 98.0 F 07/29/21 12:00 Pulse 79 07/29/21 14:34 Resp 20 H 07/29/21 14:34 BP 109/66 07/29/21 12:00 Pulse Ox 76 L 07/29/21 14:34 07/29/21 07/29/21 07/29/21 06:59 14:59 22:59 Intake Total 360 / 1890 190 / 190 0 / 190 Balance 360 / -360 190 / 190 0 / 190 Weight last 48 hrs Weight 57.379 kg Weight 66.281 kg Physical Exam Const: COMMON NORMALS: alert GENERAL APPEARANCE: ill appearing and frail appearing ORIENTATION/CONSCIOUSNESS: Yes awake, Yes oriented to person and Yes oriented to place; not oriented to time OTHER: Peripheral cyanosis, cyanosis around the lips Resp: EFFORT & INSPECTION: Yes tachypneic, Yes respiratory distress (Mild respiratory distress) and Yes retractions intercostal AUSCULTATION: crackles Cardio: COMMON NORMALS: S1 normal heart sound present and S2 normal heart sound present RATE: tachycardic HEART SOUNDS: S1 normal heart sound present and S2 normal heart sound present GI: COMMON NORMALS: Normal to inspection, nondistended, normoactive bowel sounds present, Soft to palpation and non-tender PALPATION: Yes Soft to palpation Neuro: SENSORIUM/ORIENTATION: Yes alert, Yes oriented to person, Yes oriented to place and No oriented to time Urinary Catheter Management^: Barnes: Cath Placed During This Visit: yes Reason for Continuing Indwelling Catheter: Acute Urinary Retention or Obstruction Urinary Catheter Date of Insertion: 07/25/21 Urinary Catheter Time of Insertion: 20:45 Data : 07/29/21 05:30 07/29/21 05:30 Micro: Microbiology 07/29/21 03:55 Bacterial Antigens - Final Urine,Clean Catch 07/29/21 03:55 Legionella Urinary Antigen - Final Urine,Clean Catch A&P Assessment and plan (1) Pneumonia: Acute hypoxic respiratory failure secondary to pneumonia, COVID-19 pneumonia, with severe acute respiratory distress syndrome, now with right middle lobe pulmonary embolism failure of anticoagulation on Xarelto With a history of RA interstitial lung disease Patient came in with worsening shortness of breath, nonproductive dry cough, was recently discharged after being managed for Covid, Decadron, remdesivir, did not receive Actemra or baricitinib given immunocompromise state x-ray chest: Worsening new infiltrate in left lower lung field. CT angiogram of the chest shows 1. Filling defects in the right middle lobe pulmonary artery consistent with acute pulmonary embolus. 2. Shallow inspiration today with diffuse bilateral groundglass airspace infiltrates. This is new from previous. Recommend correlation for COVID 19 pneumonia 3. Partial developing consolidation in the perihilar regions and both lung bases. 4. Trace bilateral pleural fluid. Sputum culture: Pending Blood culture: So far unremarkable MRSA PCR:Negative Legionella antigen: Pending Bacterial antigen: Pending Plan Continue medical interventions, if she starts to clinically deteriorate or starts to suffer, will pursue full comfort care, for now continue medical interventions and semicomfort care Continue heated high flow, BiPAP as needed Continue vancomycin and Zosyn, we will add Levaquin CT angiogram does show lobar consolidation hydrocortisone 50 every 12 hours with fludrocortisone 0.1 mg daily Finished remdesivir treatment during last hospitalization, not a candidate for Actemra or baricitinib given concerns for pneumonia lobar consolidation Add midodrine 10 every 8 hours 1 dose of Lasix this morning with albumin, given respiratory distress this afternoon we will give another dose of Lasix Failure of anticoagulation on Xarelto, developed pulmonary emboli on anticoagulation, switch to therapeutic Lovenox Cardiac echo pending Mucinex Incentive spirometer Flutter valve Supplemental oxygen as needed PT OT Full code Lovenox for DVT prophylaxis Family patient have changed CODE STATUS to DNR/DNI Patient and family does not want aggressive interventions, Morphine and Ativan for air hunger if required Status is critical, prognosis is poor Status: Acute (2) Acute respiratory failure with hypoxia: Status: Acute (3) Interstitial lung disease: Status: Acute (4) Atrial fibrillation: Currently rate is well controlled. Telemetry Xarelto Status: Acute Qualifiers: Atrial fibrillation type: unspecified Qualified Code(s): I48.91 - Unspecified atrial fibrillation (5) Heart failure with preserved ejection fraction: Pro BNP: 396 Lasix on hold Intake output charting Daily weight K>4,MG>2 Status: Acute (6) Hypothyroidism: Levothyroxine 137 MCG PO DAILY Status: Acute Qualifiers: Hypothyroidism type: unspecified Qualified Code(s): E03.9 - Hypothyroidism, unspecified (7) Rheumatoid arthritis: Status: Acute Qualifiers: Rheumatoid arthritis location: multiple sites Rheumatoid factor presence: unspecified presence Qualified Code(s): M06.9 - Rheumatoid arthritis, unspecified (8) Hypertension: Status: Acute Qualifiers: Hypertension type: essential hypertension Qualified Code(s): I10 - Essential (primary) hypertension (9) Acute respiratory distress syndrome: Status: Acute Additional A&P Information Recent history of COVID-19 pneumonia: Discharged on 3 L supplemental home oxygen. CODE STATUS: Full code DVT prophylaxis: Therapeutic Lovenox Attestations Medical Necessity Statement*: Patient requires hospitalization for acute respiratory failure with hypoxia secondary to pneumonia, COVID-19, acute respiratory distress syndrome, pulmonary embolism Coding Level of Care Code Acute Systems Coordinator for [facility] Diagnoses Pneumonia J18.9 Acute respiratory failure with hypoxia J96.01 Interstitial lung disease J84.9 Atrial fibrillation I48.91 Atrial fibrillation type: unspecified Heart failure with preserved ejection fraction I50.30 Hypothyroidism E03.9 Hypothyroidism type: unspecified Rheumatoid arthritis M06.9 Rheumatoid arthritis location: multiple sites Rheumatoid factor presence: unspecified presence Hypertension I10 Hypertension type: essential hypertension Acute respiratory distress syndrome J80
[2021-07-29] MEDS: LORazepam 2 mg/mL INJ 1 mL 0.5 MG IVP (16:32)
--- NOTE | 2021-07-29 16:57 | USCV_ITS ---
Pearl Roblero Age: 81 Gender: F : 1940 Exam Date: 07/29/2021 06:24 Ordering Phys: Huseyin Blount MD Technologist: FCO Exam Location: [facility] – [place] Indication: SHORTNESS OF BREATH BP: 114 / 56 HR: 69 Rhythm: Sinus Technical Quality: Technically difficult study MEASUREMENTS (Male / Female) Normal Values 2D ECHO LV Diastolic Diameter PLAX 3.8 cm 4.2 - 5.9 / 3.9 - 5.3 cm LV Systolic Diameter PLAX 2.6 cm IVS Diastolic Thickness 1.4 cm 0.6 - 1.0 / 0.6 - 0.9 cm IVS Systolic Thickness 1.8 cm LVPW Diastolic Thickness 1.4 cm 0.6 - 1.0 / 0.6 - 0.9 cm LVPW Systolic Thickness 1.6 cm LVOT Diameter 2.0 cm LV Ejection Fraction 2D Teich 57.0 % LV Ejection Fraction MOD 2C 62.0 % LV Ejection Fraction 2C AL 60.1 % LA Diameter 3.1 cm Aorta at Sinotubular Diameter 2.5 cm DOPPLER AV Peak Velocity 208.0 cm/s LVOT Peak Velocity 76.0 cm/s AV Area Cont Eq vti 1.4 cm squared AV Area Cont Eq pk 1.1 cm squared MV Area PHT 4.6 cm squared Mitral E to A Ratio 0.8 MV E' Velocity 40.5 cm/s Mitral E to MV E' Ratio 7.7 Mitral E to LV E' Lateral Ratio 7.4 Mitral E to LV E' Septal Ratio 7.9 TR Peak Velocity 247.3 cm/s TR Peak Gradient 24.5 mmHg TR Mean Velocity 189.7 cm/s TR Mean Gradient 17.5 mmHg TR Velocity Time Integral 93.3 cm TV Peak E Velocity 58.0 cm/s PV Peak Velocity 100.0 cm/s RV Acceleration Time 0.1 s RV Ejection Time 0.3 s RV AcT/ET 0.3 FINDINGS Left Ventricle Normal left ventricular size. LV systolic function is normal with EF of 55-60%. No regional wall motion abnormalities. Grade 1 diastolic dysfunction Right Ventricle The right ventricle is normal in size and function. Right Atrium The right atrium is normal in size. Left Atrium The left atrium is normal in size. Mitral Valve Structurally normal mitral valve without significant stenosis or prolapse. There is trace mitral regurgitation. Aortic Valve Aortic valve is thickened and calcified. There is no aortic regurgitation. Mild aortic stenosis. Mean gradient of 9.3mmHg and aortic valve area of 1.43 Tricuspid Valve Structurally normal tricuspid valve without significant stenosis. Mild tricuspid regurgitation. RVSP is 35-40mmHg. Mild pulmonary hypertension Pulmonic Valve Structurally normal pulmonic valve without significant stenosis. There is no pulmonic regurgitation. Pericardium Normal pericardium without effusion. Aorta Normal ascending aorta dimension. CONCLUSIONS LV systolic function is normal with EF of 55-60% Grade 1 diastolic dysfunction Trace mitral regurgitation Aortic valve is thickened and calcified. Mild aortic stenosis. Mild pulmonary hypertension Mild tricuspid regurgitation Compared to prior echocardiogram from 06/10/2020, mild aortic stenosis is noted Chris Chicas MD (Electronically Signed) Final Date: 29 July 2021 20:19 S
[2021-07-29] MEDS: morphine 4 mg/mL SDV 1 mL 2 MG IVP (19:19)
[2021-07-29 20:57] LABS: Anion Gap 17.9 (5-19); Carbon Dioxide 30 mmol/L (22-29)
[2021-07-30] VITALS (9 sets, daily range): BP systolic 127–159; BP diastolic 65–73; PULSE 0–95; RESP 17–30; TEMP 36.7–37.6; O2SAT 64–76
[2021-07-30] MEDS: ipratropium-albuterol 3 mL Neb INHALATION ×2 (01:58→08:13)
[2021-07-30] MEDS: morphine 4 mg/mL SDV 1 mL 2 MG IVP ×2 (06:50→08:59)
[2021-07-30] MEDS: budesonide 0.5 mg/2 mL Neb INHALATION (08:13)
[2021-07-30] MEDS: LORazepam 2 mg/mL INJ 1 mL IVP ×2 (10:15→12:53)
--- NOTE | 2021-07-30 10:40 | PC.OT ---
DISCHARGE OT ORDERS PER NURSING, PATIENT WILL BE TRANSFERRING TO COMFORT CARE.
[2021-07-30] MEDS: morphine 4 mg/mL SDV 1 mL IVP (11:52)
--- NOTE | 2021-07-30 13:48 | PC.SOCIAL ---
IMM update IMM updated with patient's daugther. Verbalized an understanding. Initialled, dated, timed, and placed in chart.
--- NOTE | 2021-07-30 15:10 | PC.NURSE ---
Patient passed at 15:05, time of confirmed by this nurse and Martina Fuentes, discharge rn. Mary, dry house wheeler and notified of passing.
--- NOTE | 2021-07-30 15:11 | PM.DDS ---
Discharge Providers DDS Date of Admission: 07/23/21 13:55 Date Summary Completed: 07/30/21 Attending Provider at Admission: Zachery Alfaro MD Time of : 15:05 Attending Provider at Discharge: Huseyin Blount MD Primary Care Provider: MARC Abernathy Diagnoses Hospital Diagnoses (1) Pneumonia: (2) Acute respiratory failure with hypoxia: (3) Interstitial lung disease: (4) Atrial fibrillation: Qualifiers: Atrial fibrillation type: unspecified Qualified Code(s): I48.91 - Unspecified atrial fibrillation (5) Heart failure with preserved ejection fraction: (6) Hypothyroidism: Qualifiers: Hypothyroidism type: unspecified Qualified Code(s): E03.9 - Hypothyroidism, unspecified (7) Rheumatoid arthritis: Qualifiers: Rheumatoid arthritis location: multiple sites Rheumatoid factor presence: unspecified presence Qualified Code(s): M06.9 - Rheumatoid arthritis, unspecified (8) Hypertension: Qualifiers: Hypertension type: essential hypertension Qualified Code(s): I10 - Essential (primary) hypertension (9) Acute respiratory distress syndrome: Reason for Visit Reason for Visit: WEAKNESS, DIFFICULTY BREATHING Summary Date and Time of Date of : 07/30/21 Time of : 15:05 Summary Summary: This is a 81-year-old female with a past medical history of heart failure with preserved ejection fraction, rheumatoid arthritis, interstitial lung disease, anxiety and depression, atrial fibrillation, cardiomyopathy, hypertension, hypothyroidism, TARUN on CPAP, recent hospitalization for COVID-19 pneumonia, discharged on 3 L, who presents to [facility] for shortness of breath Patient was admitted to [facility] for acute hypoxic respiratory failure secondary to multifocal pneumonia, COVID-19 pneumonia, severe acute respiratory distress syndrome, with right middle lobe pulmonary embolism with failure of anticoagulation on Xarelto with underlying history of rheumatoid arthritis interstitial lung disease. Patient was DNR/DNI, patient and family did not want aggressive interventions, wanted to pursue medical interventions. Patient was managed with broad-spectrum antibiotic therapy, anticoagulant therapy, steroid therapy, midodrine, diuretic therapy and clinically monitored. Patient's clinical condition slowly deteriorated, with increasing oxygen requirements, development of encephalopathy, and development of respiratory distress. Given patient's increasing oxygen requirements, worsening respiratory failure, the likelihood of her having a meaningful recovery was fairly unlikely, after discussing with patient's family options that were available, patient's family (, son, [id number]) wanted to pursue comfort care. Discussed the risks and benefits of comfort care, they voiced understanding, all questions answered, proceeded with comfort care. Patient's family wanted to proceed with comfort care until certain family members were present. Once all family members were present, comfort care was initiated. Patient 07/30/2021 at 3:05 PM Additional Data Confirmation of as documented by pronouncing clinician: no pulse Family: at bedside Attending/PCP notified?: Attending notified Was code activated?: No Autopsy requested?: No Advance directives?: No Discharge Plan Discharge Patient Disposition: Home Condition: Stable Prescriptions: No Action duloxetine 60 mg capsule, delayed rel sprinkle 60 mg PO DAILY Qty: 90 RF: 1 duloxetine 30 mg capsule, delayed rel sprinkle 30 mg PO DAILY RF: 0 prednisone 10 mg tablet 10 mg PO DAILY RF: 0 isosorbide mononitrate 30 mg tablet extended release 24 hr 30 mg PO DAILY Qty: 90 RF: 3 Hold Instructions: see PCP before resuming omeprazole 10 mg capsule,delayed release(DR/EC) 10 mg PO DAILY RF: 0 albuterol sulfate 90 mcg/actuation Hfa Aerosol Inhaler 2 puff INHALATION Q6H PRN (Reason: Shortness Of Breath) RF: 0 Xarelto 20 mg Tablet 20 mg PO DAILY MDD see pharmacy comment RF: 0 levothyroxine 137 mcg Tablet 137 mcg PO DAILY RF: 0 donepezil 10 mg Tablet 10 mg PO DAILY RF: 0 gabapentin 100 mg capsule 200 mg PO QID RF: 0 memantine 10 mg Tablet 10 mg PO BID RF: 0 temazepam 30 mg capsule 30 mg PO BEDTIME RF: 0 furosemide 40 mg tablet 20 mg PO DAILY Qty: 0 RF: 0 potassium chloride 10 mEq tablet extended release 20 meq PO DAILY Qty: 0 RF: 0 amoxicillin-pot clavulanate [Augmentin] 875-125 mg tablet 1 tab PO BID 5 Days Qty: 10 RF: 0 Discharge Orders: Discharge Order (Routine); Ordered 07/30/21 Ordered By: Huseyin Blount Referrals: [facility] [place] [Outside] Anahy Ham APN [Primary Care Provider] - Patient Instructions: Opioid Safety DS Attestations Time Spent in /Discharge Care*: less than 30 min Quality - AMI: AMI present?: No Quality - Stroke: CVA present?: No Symptom Onset Unknown: No Quality - VTE: VTE present?: Yes Deep Vein Thrombosis/Pulmonary Embolism Present on Admission: No Coding Level of Care Code Acute Fryer Operator for [facility] Diagnoses Pneumonia J18.9 Acute respiratory failure with hypoxia J96.01 Interstitial lung disease J84.9 Atrial fibrillation I48.91 Atrial fibrillation type: unspecified Heart failure with preserved ejection fraction I50.30 Hypothyroidism E03.9 Hypothyroidism type: unspecified Rheumatoid arthritis M06.9 Rheumatoid arthritis location: multiple sites Rheumatoid factor presence: unspecified presence Hypertension I10 Hypertension type: essential hypertension Acute respiratory distress syndrome J80
== END 2021-07-30 15:05 | disposition expired | DRG 177 ==
LOC: ER 11:34 → MEDSURG 16:38 → ER IP 07-24 08:23
PROVIDERS: Admitting Provider Internal Medicine; Emergency Provider Emergency Medicine; PCP Nurse Practitioner Family; Visit Provider Family Medicine
DX: U07.1 COVID-19 (principal); J12.82 Pneumonia due to coronavirus disease 2019; J18.9 Pneumonia, unspecified organism; J80 Acute respiratory distress syndrome; I26.99 Other pulmonary embolism without acute cor pulmonale; J84.9 Interstitial pulmonary disease, unspecified; I50.32 Chronic diastolic (congestive) heart failure; I42.9 Cardiomyopathy, unspecified; I11.0 Hypertensive heart disease with heart failure; I48.91 Unspecified atrial fibrillation; E03.9 Hypothyroidism, unspecified; M06.9 Rheumatoid arthritis, unspecified; M05.10 Rheumatoid lung disease with rheumatoid arthritis of unspecified site; G47.33 Obstructive sleep apnea (adult) (pediatric); M81.0 Age-related osteoporosis without current pathological fracture; Z66 Do not resuscitate; Z96.611 Presence of right artificial shoulder joint; Z87.891 Personal history of nicotine dependence
CPT/HCPCS: 36415; 36592; 51702; 71045; 71275; 80048; 80053; 83605; 83690; 83735; 83880; 84100; 84145; 84443; 84484; 85007; 85025; 86140; 86403; 87040; 87449; 92523; 92610; 93005; 93306; 93970; 94640; 94660; 96372; 97110; 97161; 97530; J0692; J0696; J1100; J1650; J1720; J1940; J1956; J2060; J2270; J2543; J3370; J7050; J7512; J7608; J7626; P9047; Q0144; Q9967